=== PATIENT | male | born 1955 | race Caucasian/White ===

== ENCOUNTER 2016-11-28 03:13 | Inpatient (IN) | payer OTHER ==
[~2016-11-28] VITALS: Ht 172.7 cm; Wt 87.6 kg
[2016-11-28] VITALS (28 sets, daily range): BP systolic 94–125; BP diastolic 52–89; PULSE 57–75; RESP 17–28; Ht 172.7 cm; Wt 87.6 kg
--- NOTE | 2016-11-28 03:32 | ERA ---
ER Documentation Chief Complaint Date/Time DATE: 11/28/16 TIME: 03:31 Chief Complaint upper back sharp pain HPI The patient is a 61-year-old male, presenting to the ER because of acute upper back pain radiating down to bilateral arms and substernal chest about an hour prior to arrival. The pain is 10/10, denies similar symptoms previously, denies headache, neck pain, chest pain with exertion or vomiting or diaphoresis , denies abdominal pain, vomiting, dysuria, diarrhea, constipation. He does not smoke, drinks socially, denies illicit drug Past medical history/surgical history: None ROS All systems reviewed and are negative except as per history of present illness. Medications Home Meds Reported Medications Acetaminophen* (Acetaminophen*) 500 MG Extra Strength Tablet, 500 MG PO Q4H Y for PAIN AND OR ELEVATED TEMP, TAB 11/28/16 Allergies Allergies: Coded Allergies: No Known Allergy (Unverified , 11/28/16) Physical Exam Vitals Vital Signs Date Time Temp Pulse Resp B/P Pulse Ox O2 Delivery O2 Flow Rate FiO2 11/28/16 04:30 72 16 149/93 96 Mask 11/28/16 04:25 73 16 157/100 97 Mask 11/28/16 04:20 71 18 145/91 96 Mask 11/28/16 04:13 69 16 157/99 99 Room Air 11/28/16 04:10 100 2.0 28 11/28/16 03:57 Nasal Cannula 2 11/28/16 03:30 68 18 173/107 99 Room Air 11/28/16 03:18 97.4 69 18 174/110 99 Physical Exam Const: No acute distress. Head: Atraumatic. Eyes: Normal Conjunctiva. ENT: Normal External Ears, Nose and Mouth. Neck: Full range of motion. No meningismus. Resp: Clear to auscultation bilaterally. Cardio: Regular rate and rhythm. Abd: Soft, non distended, normal bowel sounds, non tender. Skin: No petechiae or rashes. Back: No midline or flank tenderness. Ext: No cyanosis, or edema. Neur: Awake and alert. No focal deficit Psych: Normal Mood and Affect. Result Diagram: 11/28/16 0400 11/28/16 0400 Results 24 hrs Laboratory Tests Test 11/28/16 04:00 White Blood Count 11.910^3/ul Red Blood Count 5.0210^6/ul Hemoglobin 15.6g/dl Hematocrit 46.0% Mean Corpuscular Volume 91.6fl Mean Corpuscular Hemoglobin 31.1pg Mean Corpuscular Hemoglobin Concent 33.9g/dl Red Cell Distribution Width 13.2% Platelet Count 70656^3/UL Mean Platelet Volume 12.4fl Neutrophils % 43.1% Lymphocytes % 45.7% Monocytes % 7.2% Eosinophils % 2.9% Basophils % 0.8% Nucleated Red Blood Cells % 0.0/100WBC Neutrophils # 5.110^3/ul Lymphocytes # 5.410^3/ul Monocytes # 0.910^3/ul Eosinophils # 0.310^3/ul Basophils # 0.110^3/ul Nucleated Red Blood Cells # 0.010^3/ul Prothrombin Time 12.7Sec Prothrombin Time Ratio 1.0 INR International Normalized Ratio 0.95 Activated Partial Thromboplast Time 27.6Sec Sodium Level 143mmol/L Potassium Level 3.6mmol/L Chloride Level 103mmol/L Carbon Dioxide Level 24mmol/L Anion Gap 20 Blood Urea Nitrogen 24mg/dl Creatinine 0.88mg/dl Glucose Level 120mg/dl Calcium Level 9.5mg/dl Troponin I Pending Current Medications Medications (Trade) Dose Ordered Sig/Hawk Route PRN Reason Start Time Stop Time Status Last Admin Dose Admin Ondansetron HCl (Zofran Inj) 4 mg STK-MED ONCE .ROUTE 11/28/16 03:40 11/28/16 03:41 DC Hydromorphone HCl (Dilaudid) 1 mg STK-MED ONCE .ROUTE 11/28/16 03:40 11/28/16 03:41 DC Hydromorphone HCl (Dilaudid) 1 mg ONCE STAT IV 11/28/16 03:38 11/28/16 03:41 DC 11/28/16 03:55 Ondansetron HCl (Zofran Inj) 4 mg ONCE STAT IV 11/28/16 03:38 11/28/16 03:41 DC 11/28/16 03:56 Aspirin 325 mg 325 mg ONCE ONCE PO 11/28/16 04:00 11/28/16 04:02 DC 11/28/16 04:10 Nitroglycerin/ Dextrose (Nitroglycerin 50 Mg/D5W (Pmx)) 250 ml @ 0 mls/hr TITRATE IV 11/28/16 04:00 11/28/16 04:12 Heparin Sodium (Porcine) (Heparin (1000 Units/ml)) 5,000 unit ONCE ONCE IV 11/28/16 04:30 11/28/16 04:31 DC 11/28/16 04:09 Procedures/MDM EK:58 AM read by emergency physician Rate/Rhythm: Normal Sinus Rhythm 69 beats/min QRS, ST, T-waves: No ST elevation, no T inversion, acute anterior ST elevation with reciprocal changes Impression: Acute anterior ND Consultation: I discussed the patient with the on-call maternity nurse Dr Randolph at 4:02 AM. He was made aware of the pending lab, the patient condition. He is coming to the hospital to do the emergent cardiac angiogram. I texted him the EKG MEDICAL MAKING DECISION: The patient is a 71-year-old male, presenting with acute anterior ND. He was treated with aspirin 160 mg p.o., nitroglycerin drip , heparin 5000 units IV The differential diagnoses considered include but are not limited to acute coronary syndrome, acute myocardial infarction, pericarditis, pulmonary embolism , aortic dissection, pneumonia, pleural effusion, pneumothorax, GERD, chest wall pain. Critical Care: Time: 35 minutes excluding all billable procedures. Treatments/Evaluations: Close monitoring and treatment of unstable vital signs, cardiorespiratory, and neurologic status, while maintaining tight balance of fluid, respiratory, and cardiac interventions. Departure Diagnosis: Primary Impression: Acute anterior wall ND Condition: Stable Comments I discussed the findings with the patient. I discussed the patient with his physician Dr. Parker at 4:45 AM who was made aware of the pending lab, the treatment, the patient condition. 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
[2016-11-28] MEDS ORDERED: HYDROmorphONE 1 MG/ML SYG IV STA (03:38)
[2016-11-28] MEDS ORDERED: ONDANSETRON 4 MG INJ IV STA (03:38)
[2016-11-28] MEDS ORDERED: HYDROmorphONE 1 MG/ML SYG ONE (03:40)
[2016-11-28] MEDS ORDERED: ONDANSETRON 4 MG INJ ONE (03:40)
[2016-11-28] MEDS ORDERED: ASPIRIN 325 MG TAB PO ONE (04:00)
[2016-11-28] MEDS ORDERED: NITROGLYCERIN 50 MG/D5W (PMX) 250 ML IV SCH (04:00)
[2016-11-28 04:24] LABS: ADD SCAN DIFF NO
[2016-11-28 04:28] LABS: ABNORMAL IP MESSAGE 1; BASOPHIL # 0.1 10^3/ul (0.0-0.1); BASOPHILS % 0.8 % (0.0-2.0); EOSINOPHILS # 0.3 10^3/ul (0.0-0.5); EOSINOPHILS % 2.9 % (0.0-7.0); HEMOGLOBIN 15.6 g/dl (14.0-18.0); LYMPHOCYTES # 5.4 10^3/ul (0.8-2.9); LYMPHOCYTES % 45.7 % (15.0-51.0); MEAN CORPUSCULAR HEMOGLOBIN 31.1 pg (29.0-33.0); MEAN CORPUSCULAR HGB CONC 33.9 g/dl (32.0-37.0); MEAN CORPUSCULAR VOLUME 91.6 fl (82.0-101.0); MEAN PLATELET VOLUME 12.4 fl (7.4-10.4); MONOCYTE # 0.9 10^3/ul (0.3-0.9); MONOCYTES % 7.2 % (0.0-11.0); NEUTROPHIL # 5.1 10^3/ul (1.6-7.5); NEUTROPHILS % 43.1 % (39.0-77.0); PLATELET COUNT 145 10^3/UL (140-415); RED BLOOD COUNT 5.02 10^6/ul (4.70-6.10); RED CELL DISTRIBUTION WIDTH 13.2 % (11.5-14.5); WHITE BLOOD COUNT 11.9 10^3/ul (4.8-10.8)
[2016-11-28] MEDS ORDERED: HEPARIN 1000 UNITS/ML 10 ML INJ IV ONE (04:30)
[2016-11-28 04:47] LABS: INR 0.95; PROTIME 12.7 Sec (12.2-14.2)
[2016-11-28 04:48] LABS: PARTIAL THROMBOPLASTIN TIME 27.6 Sec (25.0-35.0)
[2016-11-28] MEDS ORDERED: MIDAZOLAM 1 MG/ML 2 ML INJ ONE (04:49)
[2016-11-28] MEDS ORDERED: ACET-141 PO (04:49)
[2016-11-28] MEDS ORDERED: FENTAnyl 50 MCG/ML VIAL ONE (04:49)
[2016-11-28 04:51] LABS: CALCIUM 9.5 mg/dl (8.4-10.2); CREATININE 0.88 mg/dl (0.61-1.24); POTASSIUM 3.6 mmol/L (3.5-5.1)
[2016-11-28 05:02] LABS: TROPONIN-I 0.034 ng/ml (0.00-0.12)
[2016-11-28] MEDS ORDERED: niCARdipine 25 MG INJ ONE (05:11)
[2016-11-28] MEDS ORDERED: IOHEXOL 350MG/ML 50 ML BTL ONE (05:25)
[2016-11-28] MEDS ORDERED: LIDOCAINE 1% (MDV) 20 ML INJ ONE (05:26)
[2016-11-28] MEDS ORDERED: IODIXANOL LOCM 100 ML BTL ONE (05:26)
[2016-11-28] MEDS ORDERED: HEPARIN 1000 UNITS/ML 10 ML INJ ONE (05:26)
[2016-11-28] MEDS ORDERED: CLOPIDOGREL 300 MG TAB ONE (05:30)
[2016-11-28] MEDS ORDERED: SOD CHLORIDE 0.9% 1,000 ML IV SCH (05:42)
[2016-11-28] MEDS ORDERED: BIVALIRUDIN 250MG /NS 50 ML 50 ML IV SCH (05:42)
--- NOTE | 2016-11-28 05:49 | RADRPT ---
PROCEDURE: CHEST - 1 VIEW CLINICAL INDICATION: 64-year-old male with chest pain. TECHNIQUE: A single frontal AP upright portable view of the chest was performed. The images were reviewed on a PACS workstation. COMPARISON: None. FINDINGS: The cardiomediastinal silhouette is mildly enlarged. There is mild pulmonary vascular congestion. There is a shallow inspiration. There is mild bibasilar subsegmental atelectasis. There is no evid ence for focal consolidation. There is no evidence for pneumothorax. The osseous structures are inta ct. IMPRESSION: 1. Cardiomegaly. 2. Pulmonary vascular congestion. 3. Shallow inspiration. 4. Mild bibasilar subsegmental atelectasis. .Sam Beltre MD, Date Time Electronically viewed and signed by .Sam Beltre MD, on 11/28/2016 05:49 .M/
[2016-11-28] MEDS ORDERED: AL HYDROX/MG HYDROX/SIMETH 30 ML CUP PO PRN (06:00)
[2016-11-28] MEDS ORDERED: OXYCODONE/ACETAMINOPHEN (5/325) TAB PO PRN (06:00)
[2016-11-28] MEDS ORDERED: ONDANSETRON 4 MG INJ IV PRN (06:00)
[2016-11-28] MEDS ORDERED: ACETAMINOPHEN 325 MG TAB PO PRN (06:00)
[2016-11-28] MEDS ORDERED: BIVALIRUDIN 250MG /NS 50 ML 50 ML IVPB SCH (06:26)
[2016-11-28] MEDS ORDERED: HEPARIN 5,000 UNIT/0.5 ML VIAL ONE (07:00)
[2016-11-28] MEDS: morphine 2 MG INJ IV PRN ×2 (09:28→18:00)
[2016-11-28] MEDS: CLOPIDOGREL 75 MG TAB PO SCH (09:28)
[2016-11-28] MEDS: ASPIRIN (EC) 325 MG TAB PO SCH (09:28)
[2016-11-28] MEDS: METOPROLOL 25 MG TAB PO SCH ×2 (09:29→21:00)
[2016-11-28 10:58] LABS: CREATINE KINASE > 3200 IU/L (23-200)
--- NOTE | 2016-11-28 14:24 | RADRPT ---
Vent Rate: 70 bpm RR Interval: 0 msec [place] Interval: 160 msec QRS Duration: 88 msec QT Interval: 398 msec QTC Interval: 429 msec P-R-T [place]: 58 - 58 - 91 degrees Sinus rhythm with fusion complexes Anteroseptal infarct , possibly acute or subacute ACUTE [place] Abnormal ECG No previous tracing available for comparison Electronically Signed By: Francesco Holguin [id number]
[2016-11-28 21:28] LABS: CALCIUM 8.2 mg/dl (8.4-10.2); CREATININE 0.73 mg/dl (0.61-1.24); MAGNESIUM 1.8 mg/dl (1.7-2.5); POTASSIUM 3.8 mmol/L (3.5-5.1)
[2016-11-29] VITALS (26 sets, daily range): BP systolic 91–126; BP diastolic 54–75; PULSE 61–81; RESP 16–30
[2016-11-29 05:17] LABS: ADD SCAN DIFF NO
[2016-11-29 05:28] LABS: BASOPHILS % 0.3 % (0.0-2.0); EOSINOPHILS # 0.1 10^3/ul (0.0-0.5); EOSINOPHILS % 1.1 % (0.0-7.0); HEMATOCRIT 40.2 % (42.0-52.0); HEMOGLOBIN 13.5 g/dl (14.0-18.0); LYMPHOCYTES # 2.1 10^3/ul (0.8-2.9); LYMPHOCYTES % 21.7 % (15.0-51.0); MEAN CORPUSCULAR HEMOGLOBIN 31.3 pg (29.0-33.0); MEAN CORPUSCULAR HGB CONC 33.6 g/dl (32.0-37.0); MEAN CORPUSCULAR VOLUME 93.1 fl (82.0-101.0); MEAN PLATELET VOLUME 11.8 fl (7.4-10.4); MONOCYTE # 0.7 10^3/ul (0.3-0.9); MONOCYTES % 7.1 % (0.0-11.0); NEUTROPHIL # 6.8 10^3/ul (1.6-7.5); NEUTROPHILS % 69.6 % (39.0-77.0); PLATELET COUNT 158 10^3/UL (140-415); RED BLOOD COUNT 4.32 10^6/ul (4.70-6.10); RED CELL DISTRIBUTION WIDTH 13.3 % (11.5-14.5); WHITE BLOOD COUNT 9.7 10^3/ul (4.8-10.8)
[2016-11-29 05:53] LABS: CALCIUM 8.6 mg/dl (8.4-10.2); CREATININE 0.77 mg/dl (0.61-1.24); POTASSIUM 3.9 mmol/L (3.5-5.1)
[2016-11-29 06:12] LABS: CK-MB 99.4 ng/ml (0.0-2.4)
[2016-11-29 06:35] LABS: TROPONIN-I 84.6 ng/ml (0.00-0.12)
--- NOTE | 2016-11-29 08:26 | PN ---
Date/Time of Note Date/Time of Note DATE: 11/29/16 TIME: 08:18 Assessment/Plan VTE Prophylaxis VTE Prophylaxis Intervention: SCD's Lines/Catheters [facility] [place] line still needed: No Urinary Cath still in place: No Assessment/Plan Assessment/Plan 1. Acute PR: improving. He had 3 stents placed yesterday with Dr. Randolph. He is tolerating metoprolol, NTG, and plavix. He still has some residual chest pain on the NTG drip. No frictional rubs on exam, but he may be developing pericarditis. Will defer to Dr. Randolph if he needs NSAIDs vs increasing NTG drip, keeping in mind that is slightly hypotensive with SBP is in the mid-90's. 2. Hyperlipidemia: Continue statin. Check lipid panel (and LFTs) in the AM. 3. Alcohol use: Patient has been counseled to stop. 4. GI/DVT Prophylaxis: Protonix and SCDs. 5. Dispo: Better to remain in the ICU as the patient has ongoing chest pain. Subjective 24 Hr Interval Summary Free Text/Dictation Still complaining of mild chest pain. Otherwise no other complaints. Exam/Review of Systems Vital Signs Vitals Vital Signs Date Time Temp Pulse Resp B/P Pulse Ox O2 Delivery O2 Flow Rate FiO2 11/29/16 06:00 64 20 102/68 94 Nasal Cannula 5.0 11/29/16 04:00 98.1 11/28/16 04:10 28 Intake and Output 11/28/16 11/28/16 11/29/16 15:00 23:00 07:00 Intake Total 428 ml 1440 ml 131.5 ml Output Total 700 ml 600 ml 900 ml Balance -272 ml 840 ml -768.5 ml Exam Constitutional: alert, oriented Head: normocephalic Eyes: nl conjunctiva ENMT: nl external ears & nose Neck: supple Respiratory: clear to auscultation Cardiovascular: other (No friction rubs), regular rate and rhythm (No p) Gastrointestinal: soft Results Result Diagram: 11/29/16 0430 11/29/16 0430 Results 24 hrs Laboratory Tests Test 11/28/16 09:25 11/28/16 15:50 11/28/16 21:07 11/29/16 04:30 Creatine Kinase > 3200 H 5370 H 2215 #H Creatine Kinase Index 4.9 4.5 Creatinine Kinase MB (Mass) 366.00 H 261.00 H 99.40 H Troponin I 112.000 *H 156.000 *H 84.600 *H Sodium Level 132 L 138 Potassium Level 3.8 3.9 Chloride Level 104 101 Carbon Dioxide Level 25 26 Anion Gap 7 #L 15 # Blood Urea Nitrogen 14 # 14 Creatinine 0.73 0.77 Glucose Level 114 104 Calcium Level 8.2 L 8.6 Magnesium Level 1.8 2.0 White Blood Count 9.7 Red Blood Count 4.32 L Hemoglobin 13.5 L Hematocrit 40.2 L Mean Corpuscular Volume 93.1 Mean Corpuscular Hemoglobin 31.3 Mean Corpuscular Hemoglobin Concent 33.6 Red Cell Distribution Width 13.3 Platelet Count 158 Mean Platelet Volume 11.8 H Neutrophils % 69.6 Lymphocytes % 21.7 Monocytes % 7.1 Eosinophils % 1.1 Basophils % 0.3 Nucleated Red Blood Cells % 0.0 Neutrophils # 6.8 Lymphocytes # 2.1 Monocytes # 0.7 Eosinophils # 0.1 Basophils # 0.0 Nucleated Red Blood Cells # 0.0 Medications Medications Current Medications Nitroglycerin/ Dextrose (Nitroglycerin 50 Mg/D5W (Pmx)) 250 ml @ 0 mls/hr TITRATE IV Last administered on 11/28/16 04:12; Admin Dose 6 MLS/HR; Start 11/28 at 04:00 Aspirin (Ecotrin) 325 mg DAILY PO Last administered on 11/28/16 09:28; Admin Dose 325 MG; Start 11/28/16 at 09:00 Clopidogrel Bisulfate (plaVIX) 75 mg DAILY PO Last administered on 11/28/16 09: 28; Admin Dose 75 MG; Start 11/28/16 at 09:00 Acetaminophen (Tylenol Tab) 650 mg Q4H PRN PO NON-CARDIAC PAIN LEVEL 1-3; Start 11/28/16 at 06:00 Oxycodone/ Acetaminophen (Percocet (5/ 325)) 1 tab Q4H PRN PO REPORTED NON- CARDIAC PAIN 4-7 Last administered on 11/28/16 14:07; Admin Dose 1 TAB; Start at 06:00 Morphine Sulfate (morphine) 1 mg Q1H PRN IV PAIN NOT RELIEVED BY OTHERS Last administered on 11/28/16 18:00; Admin Dose 1 MG; Start 11/28/16 at 06:00 Al Hydrox/Mg Hydrox/Simethicone (Mag-Al Plus) 30 ml Q4H PRN PO GASTROINTESTINAL UPSET; Start 11/28/16 at 06:00 Ondansetron HCl (Zofran Inj) 4 mg Q4H PRN IV NAUSEA AND/OR VOMITING Last administered on 11/28/16 08:27; Admin Dose 4 MG; Start 11/28/16 at 06:00 Metoprolol Tartrate (Lopressor) 12.5 mg BID PO Last administered on 11/28/16 09 :29; Admin Dose 12.5 MG; Start 11/28/16 at 09:00 YOLANDA MUNSON MD Nov 29, 2016 08:26
[2016-11-29] MEDS: METOPROLOL 25 MG TAB PO SCH ×2 (09:00→21:31)
[2016-11-29] MEDS: PANTOPRAZOLE (EC) 40 MG TAB PO SCH (09:12)
[2016-11-29] MEDS: ASPIRIN (EC) 325 MG TAB PO SCH (09:13)
[2016-11-29] MEDS: CLOPIDOGREL 75 MG TAB PO SCH (09:13)
--- NOTE | 2016-11-29 09:32 | CONS ---
Date/Time of Note Date/Time of Note DATE: 11/29/16 TIME: 09:21 Assessment/Plan Assessment/Plan Chief Complaint/Hosp Course IMP: 1.STEMI-s/pptca/stent x 3 to LAD witrh YANET for 100% occlusion. Now downtrending cardiac enzymes. Has residual stenosis in LCX vessel/diag which I will consider PTCA/stent during this index admission 2.Chest pain-likely pain from residual inflammation after STEMI/? pericarditis. -decreasing enzymes 3.Hotn-borderline 4.Back pain 5.Dyslipidemia-Likely Recc: -Tele -serial ecg's -trend cardiac enzymes -ASA/plavix -start statin for pleiotropic properties and check fasting lipid panel and adjust as necessary -Low dose BB as tolerated -Check echo -Possible staged procedure tomorrow to intervene upon LCX -D/C nitro and follow sx Problems: Consultation Date/Type/Reason Admit Date/Time Nov 28, 2016 at 06:13 Initial Consult Date 11/28/2016 Type of Consultation: cardiology Reason for Consultation STEMI Referring Provider: YOLANDA MUNSON MD Exam/Review of Systems Vital Signs Vitals Vital Signs Date Time Temp Pulse Resp B/P Pulse Ox O2 Delivery O2 Flow Rate FiO2 11/29/16 06:00 64 20 102/68 94 Nasal Cannula 5.0 11/29/16 04:00 98.1 11/28/16 04:10 28 Intake and Output 11/28/16 11/28/16 11/29/16 15:00 23:00 07:00 Intake Total 428 ml 1440 ml 131.5 ml Output Total 700 ml 600 ml 900 ml Balance -272 ml 840 ml -768.5 ml Exam Review of Systems: CONSTITUTIONAL: No fevers, chills. PULMONARY: No sob CARDIOVASCULAR: mild chest pain improving GASTROINTESTINAL: No nausea/vomiting. GENITOURINARY: No hematuria/dysuria. MUSCULOSKELETAL: c/o back pain PSYCHIATRIC: The patient denies depression. NEUROLOGIC: No weakness Constitutional: alert Psych: no complaints Head: normocephalic ENMT: mucosa pink and moist Neck: jvd (8-9 cm water), supple Respiratory: diminished breath sounds (at bases/B) Cardiovascular: regular rate and rhythm Gastrointestinal: non-tender, soft Musculoskeletal: muscle tone (normal) Extremities: edema (none) Neurological: other (No focal deficits) Results Result Diagram: 11/29/16 0430 11/29/16 0430 Results 24 hrs Laboratory Tests Test 11/28/16 09:25 11/28/16 15:50 11/28/16 21:07 11/29/16 04:30 Creatine Kinase > 3200 H 5370 H 2215 #H Creatine Kinase Index 4.9 4.5 Creatinine Kinase MB (Mass) 366.00 H 261.00 H 99.40 H Troponin I 112.000 *H 156.000 *H 84.600 *H Sodium Level 132 L 138 Potassium Level 3.8 3.9 Chloride Level 104 101 Carbon Dioxide Level 25 26 Anion Gap 7 #L 15 # Blood Urea Nitrogen 14 # 14 Creatinine 0.73 0.77 Glucose Level 114 104 Calcium Level 8.2 L 8.6 Magnesium Level 1.8 2.0 White Blood Count 9.7 Red Blood Count 4.32 L Hemoglobin 13.5 L Hematocrit 40.2 L Mean Corpuscular Volume 93.1 Mean Corpuscular Hemoglobin 31.3 Mean Corpuscular Hemoglobin Concent 33.6 Red Cell Distribution Width 13.3 Platelet Count 158 Mean Platelet Volume 11.8 H Neutrophils % 69.6 Lymphocytes % 21.7 Monocytes % 7.1 Eosinophils % 1.1 Basophils % 0.3 Nucleated Red Blood Cells % 0.0 Neutrophils # 6.8 Lymphocytes # 2.1 Monocytes # 0.7 Eosinophils # 0.1 Basophils # 0.0 Nucleated Red Blood Cells # 0.0 Medications Medications Current Medications Nitroglycerin/ Dextrose (Nitroglycerin 50 Mg/D5W (Pmx)) 250 ml @ 0 mls/hr TITRATE IV Last administered on 11/28/16 04:12; Admin Dose 6 MLS/HR; Start 11/28 at 04:00 Aspirin (Ecotrin) 325 mg DAILY PO Last administered on 11/29/16 09:13; Admin Dose 325 MG; Start 11/28/16 at 09:00 Clopidogrel Bisulfate (plaVIX) 75 mg DAILY PO Last administered on 11/29/16 09: 13; Admin Dose 75 MG; Start 11/28/16 at 09:00 Acetaminophen (Tylenol Tab) 650 mg Q4H PRN PO NON-CARDIAC PAIN LEVEL 1-3; Start 11/28/16 at 06:00 Oxycodone/ Acetaminophen (Percocet (5/ 325)) 1 tab Q4H PRN PO REPORTED NON- CARDIAC PAIN 4-7 Last administered on 11/28/16 14:07; Admin Dose 1 TAB; Start at 06:00 Morphine Sulfate (morphine) 1 mg Q1H PRN IV PAIN NOT RELIEVED BY OTHERS Last administered on 11/28/16 18:00; Admin Dose 1 MG; Start 11/28/16 at 06:00 Al Hydrox/Mg Hydrox/Simethicone (Mag-Al Plus) 30 ml Q4H PRN PO GASTROINTESTINAL UPSET; Start 11/28/16 at 06:00 Ondansetron HCl (Zofran Inj) 4 mg Q4H PRN IV NAUSEA AND/OR VOMITING Last administered on 11/28/16 08:27; Admin Dose 4 MG; Start 11/28/16 at 06:00 Metoprolol Tartrate (Lopressor) 12.5 mg BID PO Last administered on 11/28/16 09 :29; Admin Dose 12.5 MG; Start 11/28/16 at 09:00 Pantoprazole (Protonix Tab) 40 mg DAILY@06 PO Last administered on 11/29/16 09: 12; Admin Dose 40 MG; Start 11/29/16 at 08:30 MIRIAM PEDROZA Nov 29, 2016 09:31
[2016-11-29] MEDS ORDERED: NITROGLYCERIN (SL) 0.4 MG TAB SL PRN (10:00)
[2016-11-29 10:26] LABS: ALBUMIN 4.1 g/dl (3.3-4.9); BILIRUBIN,INDIRECT 1.1 mg/dl (0-1.1); BILIRUBIN,TOTAL 1.1 mg/dl (0.2-1.3); TOTAL PROTEIN 6.8 g/dl (6.1-8.1)
--- NOTE | 2016-11-29 12:52 | RADRPT ---
Vent Rate: 70 bpm RR Interval: 0 msec [place] Interval: 150 msec QRS Duration: 88 msec QT Interval: 430 msec QTC Interval: 464 msec P-R-T [place]: 58 - 53 - 111 degrees Normal sinus rhythm Septal infarct , age undetermined T wave abnormality, consider anterolateral ischemia Abnormal ECG No previous tracing available for comparison Electronically Signed By: Francesco Holguin [id number]
[2016-11-29 15:54] LABS: CK-MB 34.3 ng/ml (0.0-2.4); TROPONIN-I 43.5 ng/ml (0.00-0.12)
--- NOTE | 2016-11-29 15:56 | RADRPT ---
Echocardiogram Report Patient Name: MATHEW HOLM Gender: Male Date: 1955 Study Date: 28-Nov-2016 Utility Driver: [place] Location: I Ref. Physician: MIRIAM RANDOLPH Quality: Adequate Procedures: Transthoracic echocardiogram with complete 2D, M-Mode, and doppler examination. Indications: STEMI. 2D/M Mode Doppler Measurement Value Normal Ranges Measurement Value Normal Ranges AoR Diam MM 3.3 cm AV Peak [place] 1.3 m/sec ACS MM 1.9 cm AV Peak PG 7.1 mmHg LVIDd 2D 4.4 3.5 - 5.6 cm LVOT Peak [place] 1.0 m/sec LVIDs 2D 2.9 2.1 - 4.1 cm LVOT Peak PG 4.3 mmHg LVPWd 2D 1.4 0.6 - 1.1 cm MV E Peak [place] 0.7 m/sec IVSd 2D 1.4 0.6 - 1.1 cm MV A Peak [place] 0.5 m/sec EDV 2D 89.4 cm3 MV E/A 1.3 ESV 2D 23.6 cm3 MV Decel Time 225 msec LA Dimen 2D 3.8 2.3 - 4.0 cm MV Decel [place] 3 MV E/A 1.3 TR Peak Chavez 2.5 m/sec TR Peak PG 25.2 mmHg PV Peak [place]avez 1.0 m/sec PV Peak PG 4.0 mmHg RVSP 28.2 mmHg Findings Left Ventricle: Normal left ventricular systolic function. Normal left ventricular cavity size. Mild concentric left ventricular hypertrophy. Ejection fraction is visually estimated at 3540 %. Tissue Doppler/Mitral Doppler indices are most probably consistent with pseudonormalization with mildly elevated left atrial pressure (Stage II diastolic dysfunction), difficult for patient to Valsalva. These segments of the LV are hypokinetic apex, apical septum, anteroseptum mid segment, anteroseptum base segment, inferior apex segment, apical anterior segment and mid anterior segment. Right Ventricle: Normal right ventricular size. Normal right ventricular systolic function. Left Atrium: The left atrium is normal in size. Right Atrium: The right atrium is normal in size. Atrial Septum: Normal atrial septum. Mitral Valve: Normal appearance of the mitral valve. Mild mitral annular calcification. Trace to mild mitral valve regurgitation. Aortic Valve: No significant aortic stenosis or insufficiency. Left coronary cusp appears mildly calcified. Trileaflet aortic valve. Tricuspid Valve: Normal appearance of the tricuspid valve. Estimated peak PA systolic pressure 28 mmHg. There is mild tricuspid regurgitation. Pulmonic Valve: Normal pulmonic valve appearance. There is trace pulmonic regurgitation. Pericardium: Normal pericardium with no significant pericardial effusion. Aorta: Normal aortic root. IVC: Normal size and normal respiratory collapse consistent with normal right atrial pressure. Pulmonary Artery: Normal pulmonary artery size. Conclusions 1.Normal left ventricular systolic function. Normal left ventricular cavity size. Mild concentric left ventricular hypertrophy. Ejection fraction is visually estimated at 35-40 %. Tissue Doppler/Mitral Doppler indices are most probably consistent with pseudonormalization with mildly elevated left atrial pressure (Stage II diastolic dysfunction), difficult for patient to Valsalva. 2.Trace to mild mitral valve regurgitation. 3.Estimated peak PA systolic pressure 28 mmHg. 4.There is mild tricuspid regurgitation. 5.There is trace pulmonic regurgitation. Electronically Signed By: Miriam Randolph 29-Nov-2016 15:55:30 -0700 Patient Name: MATHEW HOLM Study Date: 28-Nov-2016 [id number]
[2016-11-29] MEDS: ATORVASTATIN 80 MG TAB PO SCH (21:31)
[2016-11-30] VITALS (21 sets, daily range): BP systolic 99–137; BP diastolic 58–90; PULSE 62–86; RESP 9–29
[2016-11-30] MEDS: PANTOPRAZOLE (EC) 40 MG TAB PO SCH (06:00)
[2016-11-30 06:24] LABS: ADD SCAN DIFF NO
[2016-11-30 06:58] LABS: BASOPHILS % 0.5 % (0.0-2.0); EOSINOPHILS # 0.2 10^3/ul (0.0-0.5); EOSINOPHILS % 1.8 % (0.0-7.0); HEMOGLOBIN 14.5 g/dl (14.0-18.0); LYMPHOCYTES # 2.2 10^3/ul (0.8-2.9); LYMPHOCYTES % 25.5 % (15.0-51.0); MEAN CORPUSCULAR HEMOGLOBIN 32.2 pg (29.0-33.0); MEAN CORPUSCULAR HGB CONC 34.5 g/dl (32.0-37.0); MEAN CORPUSCULAR VOLUME 93.1 fl (82.0-101.0); MEAN PLATELET VOLUME 11.4 fl (7.4-10.4); MONOCYTE # 0.8 10^3/ul (0.3-0.9); MONOCYTES % 8.9 % (0.0-11.0); NEUTROPHIL # 5.5 10^3/ul (1.6-7.5); NEUTROPHILS % 63.1 % (39.0-77.0); PLATELET COUNT 142 10^3/UL (140-415); RED BLOOD COUNT 4.51 10^6/ul (4.70-6.10); RED CELL DISTRIBUTION WIDTH 13.1 % (11.5-14.5); WHITE BLOOD COUNT 8.7 10^3/ul (4.8-10.8)
[2016-11-30 06:59] LABS: CALCIUM 9.1 mg/dl (8.4-10.2); CHOL/HDL RATIO 4.4 RATIO; CREATININE 0.78 mg/dl (0.61-1.24); POTASSIUM 3.7 mmol/L (3.5-5.1)
[2016-11-30] MEDS ORDERED: DIPHENHYDRAMINE 50 MG CAP PO SCH (08:00)
[2016-11-30] MEDS ORDERED: DIAZEPAM 5 MG TAB PO SCH (08:00)
[2016-11-30] MEDS: METOPROLOL 25 MG TAB PO SCH (08:34)
[2016-11-30] MEDS: ASPIRIN (EC) 325 MG TAB PO SCH ×2 (08:34→09:55)
[2016-11-30] MEDS: CLOPIDOGREL 75 MG TAB PO SCH ×2 (08:35→09:55)
--- NOTE | 2016-11-30 09:56 | CONS ---
Date/Time of Note Date/Time of Note DATE: 11/30/16 TIME: 09:52 Assessment/Plan Assessment/Plan Chief Complaint/Hosp Course IMP: 1.STEMI-s/p ptca/stent x 3 to LAD witrh YANET for 100% occlusion. Now downtrending cardiac enzymes. Has residual stenosis in LCX vessel/diag. 2.Chest pain-likely pain from residual inflammation after STEMI/? pericarditis. -decreasing enzymes/improved 3.Hotn-borderline 4.Back pain 5.Dyslipidemia-LDL 118 HDL 40 6.Cardiomyopathy-LVEF 35-40 by echo directly after STEMI Recc: -Tele -serial ecg's -trend cardiac enzymes -ASA/plavix/statin -Continue Low dose BB as tolerated and will, ACEI afterload reduction -Staged procedure today to intervene upon LCX Problems: Consultation Date/Type/Reason Admit Date/Time Nov 28, 2016 at 06:13 Initial Consult Date 11/28/2016 Type of Consultation: cardiology Reason for Consultation STEMI Referring Provider: YOLANDA MUNSON MD Exam/Review of Systems Vital Signs Vitals Vital Signs Date Time Temp Pulse Resp B/P Pulse Ox O2 Delivery O2 Flow Rate FiO2 11/30/16 09:00 82 22 106/71 95 Nasal Cannula 2.0 11/30/16 07:00 98.3 11/28/16 04:10 28 Intake and Output 11/29/16 11/29/16 11/30/16 15:00 23:00 07:00 Intake Total 480 ml 400 ml 500 ml Output Total 750 ml 1150 ml 400 ml Balance -270 ml -750 ml 100 ml Exam Review of Systems: CONSTITUTIONAL: No fevers, chills. PULMONARY: No sob CARDIOVASCULAR: No chest pain/palpitations GASTROINTESTINAL: No nausea/vomiting. GENITOURINARY: No hematuria/dysuria. MUSCULOSKELETAL: No myagias/arthalgias. PSYCHIATRIC: The patient denies depression. NEUROLOGIC: No weakness Constitutional: alert, oriented Psych: no complaints Head: normocephalic ENMT: mucosa pink and moist Neck: jvd (9 cm water), supple Respiratory: clear to auscultation Cardiovascular: regular rate and rhythm Gastrointestinal: non-tender, soft Musculoskeletal: muscle tone (normal) Extremities: edema (none) Neurological: other (No focal deficits) Results Result Diagram: 7/10/17 0615 7/10/17 0615 Results 24 hrs Laboratory Tests Test 11/29/16 15:15 11/30/16 06:15 Creatine Kinase 1127 H Creatine Kinase Index 3.0 Creatinine Kinase MB (Mass) 34.30 H Troponin I 43.500 *H White Blood Count 8.7 Red Blood Count 4.51 L Hemoglobin 14.5 Hematocrit 42.0 Mean Corpuscular Volume 93.1 Mean Corpuscular Hemoglobin 32.2 Mean Corpuscular Hemoglobin Concent 34.5 Red Cell Distribution Width 13.1 Platelet Count 142 Mean Platelet Volume 11.4 H Neutrophils % 63.1 Lymphocytes % 25.5 Monocytes % 8.9 Eosinophils % 1.8 Basophils % 0.5 Nucleated Red Blood Cells % 0.0 Neutrophils # 5.5 Lymphocytes # 2.2 Monocytes # 0.8 Eosinophils # 0.2 Basophils # 0.0 Nucleated Red Blood Cells # 0.0 Sodium Level 141 Potassium Level 3.7 Chloride Level 102 Carbon Dioxide Level 27 Anion Gap 16 Blood Urea Nitrogen 19 Creatinine 0.78 Glucose Level 98 Calcium Level 9.1 Triglycerides Level 93 Cholesterol Level 177 LDL Cholesterol, Calculated 118 HDL Cholesterol 40 Cholesterol/HDL Ratio 4.4 Medications Medications Current Medications Nitroglycerin/ Dextrose (Nitroglycerin 50 Mg/D5W (Pmx)) 250 ml @ 0 mls/hr TITRATE IV Last administered on 11/28/16 04:12; Admin Dose 6 MLS/HR; Start 11/28 at 04:00 Aspirin (Ecotrin) 325 mg DAILY PO Last administered on 11/29/16 09:13; Admin Dose 325 MG; Start 11/28/16 at 09:00 Clopidogrel Bisulfate (plaVIX) 75 mg DAILY PO Last administered on 11/29/16 09: 13; Admin Dose 75 MG; Start 11/28/16 at 09:00 Acetaminophen (Tylenol Tab) 650 mg Q4H PRN PO NON-CARDIAC PAIN LEVEL 1-3; Start 11/28/16 at 06:00 Oxycodone/ Acetaminophen (Percocet (5/ 325)) 1 tab Q4H PRN PO REPORTED NON- CARDIAC PAIN 4-7 Last administered on 11/28/16 14:07; Admin Dose 1 TAB; Start at 06:00 Morphine Sulfate (morphine) 1 mg Q1H PRN IV PAIN NOT RELIEVED BY OTHERS Last administered on 11/28/16 18:00; Admin Dose 1 MG; Start 11/28/16 at 06:00 Al Hydrox/Mg Hydrox/Simethicone (Mag-Al Plus) 30 ml Q4H PRN PO GASTROINTESTINAL UPSET; Start 11/28/16 at 06:00 Ondansetron HCl (Zofran Inj) 4 mg Q4H PRN IV NAUSEA AND/OR VOMITING Last administered on 11/28/16 08:27; Admin Dose 4 MG; Start 11/28/16 at 06:00 Metoprolol Tartrate (Lopressor) 12.5 mg BID PO Last administered on 11/29/16 21 :31; Admin Dose 12.5 MG; Start 11/28/16 at 09:00 Pantoprazole (Protonix Tab) 40 mg DAILY@06 PO Last administered on 11/29/16 09: 12; Admin Dose 40 MG; Start 11/29/16 at 08:30 Atorvastatin Calcium (Lipitor) 80 mg HS PO Last administered on 11/29/16 21:31 ; Admin Dose 80 MG; Start 11/29/16 at 21:00 Nitroglycerin (Nitroglycerin (Sl Tab) 0.4 Mg) 1 tab Q5M PRN SL ANGINA; Start at 10:00 Diazepam (Valium) 5 mg OC PO ; Start 11/30/16 at 08:00; Stop 11/30/16 at 18:00 Diphenhydramine HCl (Benadryl) 50 mg OC PO ; Start 11/30/16 at 08:00; Stop 11/30 at 17:00 MIRIAM PEDROZA Nov 30, 2016 09:56
[2016-11-30] MEDS ORDERED: IODIXANOL LOCM 100 ML BTL ONE (10:19)
[2016-11-30] MEDS ORDERED: LIDOCAINE 1% (MDV) 20 ML INJ ONE (10:19)
[2016-11-30] MEDS ORDERED: VERAPAMIL 5 MG INJ ONE ×2 (10:20→11:48)
[2016-11-30] MEDS ORDERED: HEPARIN 1000 UNITS/ML 10 ML INJ ONE ×2 (10:20→11:49)
[2016-11-30] MEDS ORDERED: NITROGLYCERIN (IC) 100 MCG/ML INJ ONE (10:20)
[2016-11-30] MEDS ORDERED: LIDOCAINE 100 MG SYRINGE ONE (11:47)
[2016-11-30] MEDS ORDERED: FENTAnyl 50 MCG/ML VIAL ONE (12:20)
[2016-11-30] MEDS ORDERED: MIDAZOLAM 1 MG/ML 2 ML INJ ONE (12:20)
[2016-11-30] MEDS ORDERED: BIVALIRUDIN 250MG /NS 50 ML 50 ML IVPB ONE ×2 (12:32→13:35)
[2016-11-30] MEDS ORDERED: TICAGRELOR 90 MG TABLET ONE (12:46)
--- NOTE | 2016-11-30 13:46 | RADRPT ---
Vent Rate: 79 bpm RR Interval: 0 msec [place] Interval: 0 msec QRS Duration: 134 msec QT Interval: 444 msec QTC Interval: 509 msec P-R-T [place]: 0 - 96 - 15 degrees Undetermined rhythm Right bundle branch block Anteroseptal infarct , age undetermined Abnormal ECG Electronically Signed By: Mike Brown [id number]
[2016-11-30] MEDS ORDERED: SOD CHLORIDE 0.9% 1,000 ML IV SCH (13:51)
[2016-11-30] MEDS ORDERED: ACETAMINOPHEN 325 MG TAB PO PRN (14:00)
[2016-11-30] MEDS ORDERED: OXYCODONE/ACETAMINOPHEN (5/325) TAB PO PRN (14:00)
[2016-11-30] MEDS ORDERED: ONDANSETRON 4 MG INJ IV PRN (14:00)
[2016-11-30] MEDS ORDERED: AL HYDROX/MG HYDROX/SIMETH 30 ML CUP PO PRN (14:00)
[2016-11-30] MEDS ORDERED: morphine 2 MG INJ IV PRN (14:00)
--- NOTE | 2016-11-30 15:14 | PN ---
Date/Time of Note Date/Time of Note DATE: 11/30/16 TIME: 15:12 Assessment/Plan VTE Prophylaxis VTE Prophylaxis Intervention: other Lines/Catheters [facility] Saline Lock Urinary Cath still in place: No Assessment/Plan Assessment/Plan 1. stemi, s/p LAD stent and take back for LCx stent (b) cont secondary prevention Subjective 24 Hr Interval Summary Free Text/Dictation no complaints, no pain Exam/Review of Systems Vital Signs Vitals Vital Signs Date Time Temp Pulse Resp B/P Pulse Ox O2 Delivery O2 Flow Rate FiO2 11/30/16 11:43 86 11/30/16 11:00 14 99/58 95 Nasal Cannula 2.0 11/30/16 07:00 98.3 11/28/16 04:10 28 Intake and Output 11/29/16 11/29/16 11/30/16 15:00 23:00 07:00 Intake Total 480 ml 400 ml 500 ml Output Total 750 ml 1150 ml 400 ml Balance -270 ml -750 ml 100 ml Exam nad, soft nt, no pain at cath site Results Result Diagram: 11/30/1615 11/30/16 0615 Results 24 hrs Laboratory Tests Test 11/29/16 15:15 11/30/16 06:15 Creatine Kinase 1127 H Creatine Kinase Index 3.0 Creatinine Kinase MB (Mass) 34.30 H Troponin I 43.500 *H White Blood Count 8.7 Red Blood Count 4.51 L Hemoglobin 14.5 Hematocrit 42.0 Mean Corpuscular Volume 93.1 Mean Corpuscular Hemoglobin 32.2 Mean Corpuscular Hemoglobin Concent 34.5 Red Cell Distribution Width 13.1 Platelet Count 142 Mean Platelet Volume 11.4 H Neutrophils % 63.1 Lymphocytes % 25.5 Monocytes % 8.9 Eosinophils % 1.8 Basophils % 0.5 Nucleated Red Blood Cells % 0.0 Neutrophils # 5.5 Lymphocytes # 2.2 Monocytes # 0.8 Eosinophils # 0.2 Basophils # 0.0 Nucleated Red Blood Cells # 0.0 Sodium Level 141 Potassium Level 3.7 Chloride Level 102 Carbon Dioxide Level 27 Anion Gap 16 Blood Urea Nitrogen 19 Creatinine 0.78 Glucose Level 98 Calcium Level 9.1 Triglycerides Level 93 Cholesterol Level 177 LDL Cholesterol, Calculated 118 HDL Cholesterol 40 Cholesterol/HDL Ratio 4.4 Medications Medications Current Medications Nitroglycerin/ Dextrose (Nitroglycerin 50 Mg/D5W (Pmx)) 250 ml @ 0 mls/hr TITRATE IV Last administered on 11/28/16 04:12; Admin Dose 6 MLS/HR; Start 11/28 at 04:00 Aspirin (Ecotrin) 325 mg DAILY PO Last administered on 11/30/16 09:55; Admin Dose 325 MG; Start 11/28/16 at 09:00 Acetaminophen (Tylenol Tab) 650 mg Q4H PRN PO NON-CARDIAC PAIN LEVEL 1-3; Start 11/28/16 at 06:00 Oxycodone/ Acetaminophen (Percocet (5/ 325)) 1 tab Q4H PRN PO REPORTED NON- CARDIAC PAIN 4-7 Last administered on 11/28/16 14:07; Admin Dose 1 TAB; Start at 06:00 Morphine Sulfate (morphine) 1 mg Q1H PRN IV PAIN NOT RELIEVED BY OTHERS Last administered on 11/28/16 18:00; Admin Dose 1 MG; Start 11/28/16 at 06:00 Al Hydrox/Mg Hydrox/Simethicone (Mag-Al Plus) 30 ml Q4H PRN PO GASTROINTESTINAL UPSET; Start 11/28/16 at 06:00 Ondansetron HCl (Zofran Inj) 4 mg Q4H PRN IV NAUSEA AND/OR VOMITING Last administered on 11/28/16 08:27; Admin Dose 4 MG; Start 11/28/16 at 06:00 Pantoprazole (Protonix Tab) 40 mg DAILY@06 PO Last administered on 11/29/16 09: 12; Admin Dose 40 MG; Start 11/29/16 at 08:30 Atorvastatin Calcium (Lipitor) 80 mg HS PO Last administered on 11/29/16 21:31 ; Admin Dose 80 MG; Start 11/29/16 at 21:00 Nitroglycerin (Nitroglycerin (Sl Tab) 0.4 Mg) 1 tab Q5M PRN SL ANGINA; Start at 10:00 Diazepam (Valium) 5 mg OC PO Last administered on 11/30/16 10:25; Admin Dose 5 MG; Start 11/30/16 at 08:00; Stop 11/30/16 at 18:00 Diphenhydramine HCl (Benadryl) 50 mg OC PO Last administered on 11/30/16 10:25 ; Admin Dose 50 MG; Start 11/30/16 at 08:00; Stop 11/30/16 at 17:00 Carvedilol (Coreg) 3.125 mg BID PO ; Start 11/30/16 at 21:00 Lisinopril (Zestril) 2.5 mg DAILY PO ; Start 12/01/16 at 09:00 Miscellaneous Information (* Miscellaneous Pharmacy Order) Hold all Metformin ... ONCE XX ; Start 11/30/16 at 14:00; Stop 12/02/16 at 13:59 Aspirin (Halfprin) 81 mg DAILY PO ; Start 12/01/16 at 09:00 Ticagrelor (Brilinta) 90 mg BID PO ; Start 11/30/16 at 21:00 Acetaminophen (Tylenol Tab) 650 mg Q4H PRN PO NON-CARDIAC PAIN LEVEL 1-3; Start 11/30/16 at 14:00 Oxycodone/ Acetaminophen (Percocet (5/ 325)) 1 tab Q4H PRN PO REPORTED NON- CARDIAC PAIN 4-7; Start 11/30/16 at 14:00 Morphine Sulfate (morphine) 1 mg Q1H PRN IV PAIN NOT RELIEVED BY OTHERS; Start 11/30/16 at 14:00 Al Hydrox/Mg Hydrox/Simethicone (Mag-Al Plus) 30 ml Q4H PRN PO GASTROINTESTINAL UPSET; Start 11/30/16 at 14:00 Ondansetron HCl 4 mg 4 mg Q4H PRN IV NAUSEA AND/OR VOMITING; Start 11/30/16 at 14:00 Sodium Chloride (NS) 1,000 ml @ 75 mls/hr [id number] IV Last administered on 11/30 14:12; Admin Dose 75 MLS/HR; Start 11/30/16 at 13:51; Stop 12/01/16 at 03: 10 ANGELA GÓMEZ MD Nov 30, 2016 15:13
[2016-11-30] MEDS: ATORVASTATIN 80 MG TAB PO SCH (20:23)
[2016-11-30] MEDS: TICAGRELOR 90 MG TABLET PO SCH (20:28)
[2016-12-01] VITALS (21 sets, daily range): BP systolic 94–126; BP diastolic 55–83; PULSE 65–79; RESP 0–30
[2016-12-01 05:36] LABS: ADD SCAN DIFF NO
[2016-12-01 05:49] LABS: BASOPHIL # 0.1 10^3/ul (0.0-0.1); BASOPHILS % 0.5 % (0.0-2.0); EOSINOPHILS # 0.2 10^3/ul (0.0-0.5); EOSINOPHILS % 2.4 % (0.0-7.0); HEMOGLOBIN 14.6 g/dl (14.0-18.0); LYMPHOCYTES # 1.9 10^3/ul (0.8-2.9); MEAN CORPUSCULAR HEMOGLOBIN 30.7 pg (29.0-33.0); MEAN CORPUSCULAR HGB CONC 33.2 g/dl (32.0-37.0); MEAN CORPUSCULAR VOLUME 92.6 fl (82.0-101.0); MEAN PLATELET VOLUME 11.4 fl (7.4-10.4); MONOCYTE # 0.9 10^3/ul (0.3-0.9); MONOCYTES % 9.9 % (0.0-11.0); NEUTROPHIL # 6.1 10^3/ul (1.6-7.5); NEUTROPHILS % 65.9 % (39.0-77.0); PLATELET COUNT 160 10^3/UL (140-415); RED BLOOD COUNT 4.75 10^6/ul (4.70-6.10); RED CELL DISTRIBUTION WIDTH 13.3 % (11.5-14.5); WHITE BLOOD COUNT 9.2 10^3/ul (4.8-10.8)
[2016-12-01 06:10] LABS: CALCIUM 8.9 mg/dl (8.4-10.2); CREATININE 0.84 mg/dl (0.61-1.24); POTASSIUM 3.8 mmol/L (3.5-5.1)
[2016-12-01 06:18] LABS: CK-MB 7.24 ng/ml (0.0-2.4); TROPONIN-I 22.6 ng/ml (0.00-0.12)
[2016-12-01] MEDS: PANTOPRAZOLE (EC) 40 MG TAB PO SCH (06:29)
[2016-12-01] MEDS: ASPIRIN (EC) 81 MG TAB PO SCH (08:14)
[2016-12-01] MEDS: LISINOPRIL 5 MG TAB PO SCH (08:14)
[2016-12-01] MEDS: TICAGRELOR 90 MG TABLET PO SCH ×2 (08:15→20:56)
[2016-12-01] MEDS: ASPIRIN (EC) 325 MG TAB PO SCH (08:18)
--- NOTE | 2016-12-01 10:41 | CONS ---
Date/Time of Note Date/Time of Note DATE: 12/01/16 TIME: 10:38 Assessment/Plan Assessment/Plan Additional Assessment/Plan 1.STEMI-s/p ptca/stent x 3 to LAD witrh YANET for 100% occlusion. Now downtrending cardiac enzymes. Has residual stenosis in LCX vessel/diag - better now, able to ambulate - ok to tele 2.Chest pain-likely pain from residual inflammation after STEMI/? pericarditis. -decreasing enzymes/improved - no active CP 3.Hotn-borderline - BP better 4.Back pain 5.Dyslipidemia-LDL 118 HDL 40 6.Cardiomyopathy-LVEF 35-40 by echo directly after STEMI - gentle diuresis as needed Consultation Date/Type/Reason Admit Date/Time Nov 28, 2016 at 06:13 Initial Consult Date Type of Consultation: cardiology Referring Provider: YOLANDA MUNSON MD 24 HR Interval Summary Free Text/Dictation NO acute events - BP in good range - able to ambulate - encourage rehab now. ROS: No fever, no chills, no nausea, no vomiting, no diarrhea/constipation No recent weight changes No chest pain, no PND, no orthopnea No dizziness, blurred vision No thirst, no heat or cold intolerance Exam/Review of Systems Vital Signs Vitals Vital Signs Date Time Temp Pulse Resp B/P Pulse Ox O2 Delivery O2 Flow Rate FiO2 12/01/16 10:00 71 28 118/80 95 Nasal Cannula 2.0 12/01/16 08:00 98.2 11/28/16 04:10 28 Intake and Output 11/30/16 11/30/16 12/01/16 15:00 23:00 07:00 Intake Total 75 ml 1200 ml 450 ml Output Total 350 ml 1350 ml 600 ml Balance -275 ml -150 ml -150 ml Exam General: WN/WD/NAD, AOx 3 HEENT: Unicetric/atraumatic/EOMI (follow commands) NECK: JVD elevated, no thyromegaly Lymph: no lymphadenopathy HEART: regular with no S3, II/ systolic murmur at apex LUNGS: Coarse sounds ABD: soft, NT, ND, +BS : Intact Neuro: non focal SKIN: chronic changes EXT: trace edema Results Result Diagram: 12/01/1651912/01/16 0520 Results 24 hrs Laboratory Tests Test 12/01/16 05:20 White Blood Count 9.2 Red Blood Count 4.75 Hemoglobin 14.6 Hematocrit 44.0 Mean Corpuscular Volume 92.6 Mean Corpuscular Hemoglobin 30.7 Mean Corpuscular Hemoglobin Concent 33.2 Red Cell Distribution Width 13.3 Platelet Count 160 Mean Platelet Volume 11.4 H Neutrophils % 65.9 Lymphocytes % 21.0 Monocytes % 9.9 Eosinophils % 2.4 Basophils % 0.5 Nucleated Red Blood Cells % 0.0 Neutrophils # 6.1 Lymphocytes # 1.9 Monocytes # 0.9 Eosinophils # 0.2 Basophils # 0.1 Nucleated Red Blood Cells # 0.0 Sodium Level 137 Potassium Level 3.8 Chloride Level 105 Carbon Dioxide Level 24 Anion Gap 12 Blood Urea Nitrogen 15 Creatinine 0.84 Glucose Level 104 Calcium Level 8.9 Creatine Kinase 348 #H Creatine Kinase Index 2.1 Creatinine Kinase MB (Mass) 7.24 H Troponin I 22.600 *H Medications Medications Current Medications Nitroglycerin/ Dextrose (Nitroglycerin 50 Mg/D5W (Pmx)) 250 ml @ 0 mls/hr TITRATE IV Last administered on 11/28/16 04:12; Admin Dose 6 MLS/HR; Start 11/28 at 04:00 Acetaminophen (Tylenol Tab) 650 mg Q4H PRN PO NON-CARDIAC PAIN LEVEL 1-3; Start 11/28/16 at 06:00 Oxycodone/ Acetaminophen (Percocet (5/ 325)) 1 tab Q4H PRN PO REPORTED NON- CARDIAC PAIN 4-7 Last administered on 11/28/16 14:07; Admin Dose 1 TAB; Start at 06:00 Morphine Sulfate (morphine) 1 mg Q1H PRN IV PAIN NOT RELIEVED BY OTHERS Last administered on 11/28/16 18:00; Admin Dose 1 MG; Start 11/28/16 at 06:00 Al Hydrox/Mg Hydrox/Simethicone (Mag-Al Plus) 30 ml Q4H PRN PO GASTROINTESTINAL UPSET; Start 11/28/16 at 06:00 Ondansetron HCl (Zofran Inj) 4 mg Q4H PRN IV NAUSEA AND/OR VOMITING Last administered on 11/28/16 08:27; Admin Dose 4 MG; Start 11/28/16 at 06:00 Pantoprazole (Protonix Tab) 40 mg DAILY@06 PO Last administered on 12/01/16 06 :29; Admin Dose 40 MG; Start 11/29/16 at 08:30 Atorvastatin Calcium (Lipitor) 80 mg HS PO Last administered on 11/30/16 20:23 ; Admin Dose 80 MG; Start 11/29/16 at 21:00 Nitroglycerin (Nitroglycerin (Sl Tab) 0.4 Mg) 1 tab Q5M PRN SL ANGINA; Start at 10:00 Carvedilol (Coreg) 3.125 mg BID PO Last administered on 11/30/16 20:24; Admin Dose 3.125 MG; Start 11/30/16 at 21:00 Lisinopril (Zestril) 2.5 mg DAILY PO Last administered on 12/01/16 08:14; Admin Dose 2.5 MG; Start 12/01/16 at 09:00 Miscellaneous Information (* Miscellaneous Pharmacy Order) Hold all Metformin ... ONCE XX ; Start 11/30/16 at 14:00; Stop 12/02/16 at 13:59 Aspirin (Halfprin) 81 mg DAILY PO Last administered on 12/01/16 08:14; Admin Dose 81 MG; Start 12/01/16 at 09:00 Ticagrelor (Brilinta) 90 mg BID PO Last administered on 12/01/16 08:15; Admin Dose 90 MG; Start 11/30/16 at 21:00 Acetaminophen (Tylenol Tab) 650 mg Q4H PRN PO NON-CARDIAC PAIN LEVEL 1-3; Start 11/30/16 at 14:00 Oxycodone/ Acetaminophen (Percocet (5/ 325)) 1 tab Q4H PRN PO REPORTED NON- CARDIAC PAIN 4-7; Start 11/30/16 at 14:00 Morphine Sulfate (morphine) 1 mg Q1H PRN IV PAIN NOT RELIEVED BY OTHERS; Start 11/30/16 at 14:00 Al Hydrox/Mg Hydrox/Simethicone (Mag-Al Plus) 30 ml Q4H PRN PO GASTROINTESTINAL UPSET; Start 11/30/16 at 14:00 Ondansetron HCl (Zofran Inj) 4 mg Q4H PRN IV NAUSEA AND/OR VOMITING; Start 03/09 at 14:00 ANAID JOHNSON MD Dec 01, 2016 10:40
--- NOTE | 2016-12-01 15:15 | PN ---
Date/Time of Note Date/Time of Note DATE: 12/01/16 TIME: 15:13 Assessment/Plan VTE Prophylaxis VTE Prophylaxis Intervention: other Lines/Catheters IV Catheter Type (from Nrs): Saline Lock Urinary Cath still in place: No Assessment/Plan Assessment/Plan 1,. cards: s/p stemi and stent x3 LAD, s/p stent to lcx (b0 cont secondary prevention (C) increase activity Subjective 24 Hr Interval Summary Free Text/Dictation no comp;laionts, able to walk, improving pain Exam/Review of Systems Vital Signs Vitals Vital Signs Date Time Temp Pulse Resp B/P Pulse Ox O2 Delivery O2 Flow Rate FiO2 12/01/16 14:00 76 30 121/83 97 Room Air 12/01/16 12:00 98.0 12/01/16 10:00 2.0 11/28/16 04:10 28 Intake and Output 11/30/16 11/30/16 12/01/16 15:00 23:00 07:00 Intake Total 75 ml 1200 ml 450 ml Output Total 350 ml 1350 ml 600 ml Balance -275 ml -150 ml -150 ml Exam nad soft nt, no pain or hematoma at cath site Results Result Diagram: 12/01/16 0520 12/01/16 0520 Results 24 hrs Laboratory Tests Test 12/01/16 05:20 White Blood Count 9.2 Red Blood Count 4.75 Hemoglobin 14.6 Hematocrit 44.0 Mean Corpuscular Volume 92.6 Mean Corpuscular Hemoglobin 30.7 Mean Corpuscular Hemoglobin Concent 33.2 Red Cell Distribution Width 13.3 Platelet Count 160 Mean Platelet Volume 11.4 H Neutrophils % 65.9 Lymphocytes % 21.0 Monocytes % 9.9 Eosinophils % 2.4 Basophils % 0.5 Nucleated Red Blood Cells % 0.0 Neutrophils # 6.1 Lymphocytes # 1.9 Monocytes # 0.9 Eosinophils # 0.2 Basophils # 0.1 Nucleated Red Blood Cells # 0.0 Sodium Level 137 Potassium Level 3.8 Chloride Level 105 Carbon Dioxide Level 24 Anion Gap 12 Blood Urea Nitrogen 15 Creatinine 0.84 Glucose Level 104 Calcium Level 8.9 Creatine Kinase 348 #H Creatine Kinase Index 2.1 Creatinine Kinase MB (Mass) 7.24 H Troponin I 22.600 *H Medications Medications Current Medications Nitroglycerin/ Dextrose (Nitroglycerin 50 Mg/D5W (Pmx)) 250 ml @ 0 mls/hr TITRATE IV Last administered on 11/28/16 04:12; Admin Dose 6 MLS/HR; Start 11/28 at 04:00 Acetaminophen (Tylenol Tab) 650 mg Q4H PRN PO NON-CARDIAC PAIN LEVEL 1-3; Start 11/28/16 at 06:00 Oxycodone/ Acetaminophen (Percocet (5/ 325)) 1 tab Q4H PRN PO REPORTED NON- CARDIAC PAIN 4-7 Last administered on 11/28/16 14:07; Admin Dose 1 TAB; Start at 06:00 Morphine Sulfate (morphine) 1 mg Q1H PRN IV PAIN NOT RELIEVED BY OTHERS Last administered on 11/28/16 18:00; Admin Dose 1 MG; Start 11/28/16 at 06:00 Al Hydrox/Mg Hydrox/Simethicone (Mag-Al Plus) 30 ml Q4H PRN PO GASTROINTESTINAL UPSET; Start 11/28/16 at 06:00 Ondansetron HCl (Zofran Inj) 4 mg Q4H PRN IV NAUSEA AND/OR VOMITING Last administered on 11/28/16 08:27; Admin Dose 4 MG; Start 11/28/16 at 06:00 Pantoprazole (Protonix Tab) 40 mg DAILY@06 PO Last administered on 12/01/16 06 :29; Admin Dose 40 MG; Start 11/29/16 at 08:30 Atorvastatin Calcium (Lipitor) 80 mg HS PO Last administered on 11/30/16 20:23 ; Admin Dose 80 MG; Start 11/29/16 at 21:00 Nitroglycerin (Nitroglycerin (Sl Tab) 0.4 Mg) 1 tab Q5M PRN SL ANGINA; Start at 10:00 Carvedilol (Coreg) 3.125 mg BID PO Last administered on 11/30/16 20:24; Admin Dose 3.125 MG; Start 11/30/16 at 21:00 Lisinopril (Zestril) 2.5 mg DAILY PO Last administered on 12/01/16 08:14; Admin Dose 2.5 MG; Start 12/01/16 at 09:00 Miscellaneous Information (* Miscellaneous Pharmacy Order) Hold all Metformin ... ONCE XX ; Start 11/30/16 at 14:00; Stop 12/02/16 at 13:59 Aspirin (Halfprin) 81 mg DAILY PO Last administered on 12/01/16 08:14; Admin Dose 81 MG; Start 12/01/16 at 09:00 Ticagrelor (Brilinta) 90 mg BID PO Last administered on 12/01/16 08:15; Admin Dose 90 MG; Start 11/30/16 at 21:00 Acetaminophen (Tylenol Tab) 650 mg Q4H PRN PO NON-CARDIAC PAIN LEVEL 1-3; Start 11/30/16 at 14:00 Oxycodone/ Acetaminophen (Percocet (5/ 325)) 1 tab Q4H PRN PO REPORTED NON- CARDIAC PAIN 4-7; Start 11/30/16 at 14:00 Morphine Sulfate (morphine) 1 mg Q1H PRN IV PAIN NOT RELIEVED BY OTHERS; Start 11/30/16 at 14:00 Al Hydrox/Mg Hydrox/Simethicone (Mag-Al Plus) 30 ml Q4H PRN PO GASTROINTESTINAL UPSET; Start 11/30/16 at 14:00 Ondansetron HCl (Zofran Inj) 4 mg Q4H PRN IV NAUSEA AND/OR VOMITING; Start 03/09 at 14:00 ANGELA GÓMEZ MD Dec 01, 2016 15:15
--- NOTE | 2016-12-01 17:18 | RADRPT ---
Vent Rate: 68 bpm RR Interval: 0 msec WV Interval: 148 msec QRS Duration: 90 msec QT Interval: 424 msec QTC Interval: 450 msec P-R-T Wiley: 58 - 45 - 91 degrees Normal sinus rhythm Septal infarct , age undetermined T wave abnormality, consider anterolateral ischemia Abnormal ECG Electronically Signed By: Mike Brown [id number]
[2016-12-01] MEDS: ATORVASTATIN 80 MG TAB PO SCH (20:56)
[2016-12-02] VITALS (12 sets, daily range): BP systolic 102–119; BP diastolic 56–74; PULSE 66–80; RESP 18–20
[2016-12-02] MEDS: PANTOPRAZOLE (EC) 40 MG TAB PO SCH (05:55)
[2016-12-02] MEDS: ASPIRIN (EC) 81 MG TAB PO SCH (08:47)
[2016-12-02] MEDS: LISINOPRIL 5 MG TAB PO SCH (08:48)
[2016-12-02] MEDS: TICAGRELOR 90 MG TABLET PO SCH ×2 (08:49→21:02)
[2016-12-02 12:14] LABS: CK-MB 3.32 ng/ml (0.0-2.4); TROPONIN-I 11.1 ng/ml (0.00-0.12)
--- NOTE | 2016-12-02 12:45 | PN ---
Date/Time of Note Date/Time of Note DATE: 12/02/16 TIME: 12:14 Assessment/Plan VTE Prophylaxis VTE Prophylaxis Intervention: SCD's Lines/Catheters IV Catheter Type (from Nrs): Saline Lock Urinary Cath still in place: No Assessment/Plan Assessment/Plan 61-year-old male: 1. S/p STEMI and s/p stents to LAD x3 and stent to lcx Continue current medications, follow-up with cardiology regarding disposition and discharge planning. Prophylaxis: Tolerating p.o., ambulation Disposition: Follow-up cardiology recommendation regarding discharge planning, hopefully patient can go home today with PCP and cardiology follow-up Subjective 24 Hr Interval Summary Free Text/Dictation Patient denies chest pain, nausea or vomiting. He has ambulated multiple times with no complaints of shortness of breath or chest pain Repeat troponin is pending today, discharge planning pending cardiology follow- up No arrhythmias on telemetry Exam/Review of Systems Vital Signs Vitals Vital Signs Date Time Temp Pulse Resp B/P Pulse Ox O2 Delivery O2 Flow Rate FiO2 12/02/16 11:21 97.9 75 20 102/56 98 12/01/16 17:00 Room Air 12/01/16 10:00 2.0 Intake and Output 12/01/16 12/01/16 12/02/16 15:00 23:00 07:00 Intake Total 330 ml 0 ml 400 ml Output Total 650 ml 1 ml Balance -320 ml -1 ml 400 ml Exam Constitutional: alert, oriented, well developed Respiratory: clear to auscultation, normal air movement Cardiovascular: nl pulses, regular rate and rhythm Gastrointestinal: non-tender, soft Musculoskeletal: nl extremities to inspection Extremities: normal pulses, other (No edema clubbing or cyanosis) 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, nl mental status, nl speech, nl strength Results Result Diagram: 12/01/1651912/01/16 0520 Results 24 hrs Laboratory Tests Test 12/02/16 10:54 Creatine Kinase 214 H Creatine Kinase Index Pending Creatinine Kinase MB (Mass) Pending Troponin I Pending Medications Medications Current Medications Acetaminophen (Tylenol Tab) 650 mg Q4H PRN PO NON-CARDIAC PAIN LEVEL 1-3; Start 11/28/16 at 06:00 Oxycodone/ Acetaminophen (Percocet (5/ 325)) 1 tab Q4H PRN PO REPORTED NON- CARDIAC PAIN 4-7 Last administered on 11/28/16 14:07; Admin Dose 1 TAB; Start at 06:00 Morphine Sulfate (morphine) 1 mg Q1H PRN IV PAIN NOT RELIEVED BY OTHERS Last administered on 11/28/16 18:00; Admin Dose 1 MG; Start 11/28/16 at 06:00 Ondansetron HCl (Zofran Inj) 4 mg Q4H PRN IV NAUSEA AND/OR VOMITING Last administered on 11/28/16 08:27; Admin Dose 4 MG; Start 11/28/16 at 06:00 Pantoprazole (Protonix Tab) 40 mg DAILY@06 PO Last administered on 12/02/16 05 :55; Admin Dose 40 MG; Start 11/29/16 at 08:30 Atorvastatin Calcium (Lipitor) 80 mg HS PO Last administered on 12/01/16 20:56 ; Admin Dose 80 MG; Start 11/29/16 at 21:00 Nitroglycerin (Nitroglycerin (Sl Tab) 0.4 Mg) 1 tab Q5M PRN SL ANGINA; Start at 10:00 Carvedilol (Coreg) 3.125 mg BID PO Last administered on 11/30/16 20:24; Admin Dose 3.125 MG; Start 11/30/16 at 21:00 Lisinopril (Zestril) 2.5 mg DAILY PO Last administered on 12/02/16 08:48; Admin Dose 2.5 MG; Start 12/01/16 at 09:00 Miscellaneous Information (* Miscellaneous Pharmacy Order) Hold all Metformin ... ONCE XX ; Start 11/30/16 at 14:00; Stop 12/02/16 at 13:59 Aspirin (Halfprin) 81 mg DAILY PO Last administered on 12/02/16 08:47; Admin Dose 81 MG; Start 12/01/16 at 09:00 Ticagrelor (Brilinta) 90 mg BID PO Last administered on 12/02/16 08:49; Admin Dose 90 MG; Start 11/30/16 at 21:00 Acetaminophen (Tylenol Tab) 650 mg Q4H PRN PO NON-CARDIAC PAIN LEVEL 1-3; Start 11/30/16 at 14:00 Oxycodone/ Acetaminophen (Percocet (5/ 325)) 1 tab Q4H PRN PO REPORTED NON- CARDIAC PAIN 4-7; Start 11/30/16 at 14:00 Morphine Sulfate (morphine) 1 mg Q1H PRN IV PAIN NOT RELIEVED BY OTHERS; Start 11/30/16 at 14:00 Al Hydrox/Mg Hydrox/Simethicone (Mag-Al Plus) 30 ml Q4H PRN PO GASTROINTESTINAL UPSET; Start 11/30/16 at 14:00 Ondansetron HCl (Zofran Inj) 4 mg Q4H PRN IV NAUSEA AND/OR VOMITING; Start 03/09 at 14:00 CAIT NUÑEZ F Dec 02, 2016 12: at 10:00 Carvedilol (Coreg) 3.125 mg BID PO Last administered on 11/30/16 20:24; Admin Dose 3.125 MG; Start 11/30/16 at 21:00 Lisinopril (Zestril) 2.5 mg DAILY PO Last administered on 12/02/16 08:48; Admin Dose 2.5 MG; Start 12/01/16 at 09:00 Miscellaneous Information (* Miscellaneous Pharmacy Order) Hold all Metformin ... ONCE XX ; Start 11/30/16 at 14:00; Stop 12/02/16 at 13:59 Aspirin (Halfprin) 81 mg DAILY PO Last administered on 12/02/16 08:47; Admin Dose 81 MG; Start 12/01/16 at 09:00 Ticagrelor (Brilinta) 90 mg BID PO Last administered on 12/02/16 08:49; Admin Dose 90 MG; Start 11/30/16 at 21:00 Acetaminophen (Tylenol Tab) 650 mg Q4H PRN PO NON-CARDIAC PAIN LEVEL 1-3; Start 11/30/16 at 14:00 Oxycodone/ Acetaminophen (Percocet (5/ 325)) 1 tab Q4H PRN PO REPORTED NON- CARDIAC PAIN 4-7; Start 11/30/16 at 14:00 Morphine Sulfate (morphine) 1 mg Q1H PRN IV PAIN NOT RELIEVED BY OTHERS; Start 11/30/16 at 14:00 Al Hydrox/Mg Hydrox/Simethicone (Mag-Al Plus) 30 ml Q4H PRN PO GASTROINTESTINAL UPSET; Start 11/30/16 at 14:00 Ondansetron HCl (Zofran Inj) 4 mg Q4H PRN IV NAUSEA AND/OR VOMITING; Start 03/09 at 14:00 CAIT NUÑEZ Dec 02, 2016 12:29
--- NOTE | 2016-12-02 15:17 | PDOCDIS ---
Discharge Instructions CONDITION Patient Condition: Stable HOME CARE INSTRUCTIONS: Special Diet: LOW CHOL/LOW FAT ACTIVITY: Activity Restrictions: Slowly Increase Activity Do not operate Power Tool Avoid Heavy Housework FOLLOW UP/APPOINTMENTS Follow-up Plan Follow up with PCP in 1 to 2 weeks Follow up with Cardiology in 2 to 4 weeks SCHOOL/WORK RELEASE May return to School/Work on: Dec 16, 2016 CAIT NUÑEZ Dec 02, 2016 15:17
[2016-12-02] MEDS ORDERED: TICA90TA PO (15:20)
[2016-12-02] MEDS ORDERED: ATOR80TA75 PO (15:20)
[2016-12-02] MEDS ORDERED: LISI-313 PO (15:20)
[2016-12-02] MEDS ORDERED: ASPI-664 PO (15:20)
[2016-12-02] MEDS ORDERED: CARV3.1260 PO (15:20)
--- NOTE | 2016-12-02 16:24 | CONS ---
Date/Time of Note Date/Time of Note DATE: 12/02/16 TIME: 16:15 Assessment/Plan Assessment/Plan Chief Complaint/Hosp Course IMP: 1.STEMI-s/p ptca/stent x 3 to LAD with YANET for 100% occlusion. Now downtrending cardiac enzymes. Now s/p PTCA/stent x 1 diag/x 1 to LCX POD#2 2.Chest pain-likely pain from residual inflammation after STEMI/? pericarditis. -decreasing enzymes/improved 3.Hotn-borderline 4.Back pain 5.Dyslipidemia-LDL 118 HDL 40 6.Cardiomyopathy-LVEF 35-40 by echo directly after STEMI Recc: -Tele -ASA/Brilinta -Continue Low dose BB as tolerated and ACEI afterload reduction -Continue low dose lasix and follow volume status closely -outpatient f/u 2-3 weeks -At [facility] time working on authorization for Brilinta for stent patency/anti- platelet agents as patient is a non-responder to plavix and thus must have brilinta with asa as antiplatelet regimen Problems: Consultation Date/Type/Reason Admit Date/Time Nov 28, 2016 at 06:13 Initial Consult Date 11/28/2016 Type of Consultation: cardiology Reason for Consultation STEMI Referring Provider: YOLANDA MUNSON MD Exam/Review of Systems Vital Signs Vitals Vital Signs Date Time Temp Pulse Resp B/P Pulse Ox O2 Delivery O2 Flow Rate FiO2 12/02/16 15:18 98.0 75 20 104/59 95 12/01/16 17:00 Room Air 12/01/16 10:00 2.0 Intake and Output 12/01/16 12/01/16 12/02/16 15:00 23:00 07:00 Intake Total 330 ml 0 ml 400 ml Output Total 650 ml 1 ml Balance -320 ml -1 ml 400 ml Exam Review of Systems: CONSTITUTIONAL: No fevers, chills. PULMONARY: No sob CARDIOVASCULAR: No chest pain/palpitations GASTROINTESTINAL: No nausea/vomiting. GENITOURINARY: No hematuria/dysuria. MUSCULOSKELETAL: No myagias/arthalgias. PSYCHIATRIC: The patient denies depression. NEUROLOGIC: No weakness Constitutional: alert, oriented Psych: no complaints Head: normocephalic Neck: jvd (8 cm water), supple Respiratory: clear to auscultation Cardiovascular: regular rate and rhythm Gastrointestinal: non-tender, soft Musculoskeletal: muscle tone (normal) Extremities: edema (none) Neurological: other (No focal deficits) Results Result Diagram: 12/01/1651912/01/16 0520 Results 24 hrs Laboratory Tests Test 12/02/16 10:54 Creatine Kinase 214 H Creatine Kinase Index 1.6 Creatinine Kinase MB (Mass) 3.32 H Troponin I 11.100 *H Medications Medications Current Medications Acetaminophen (Tylenol Tab) 650 mg Q4H PRN PO NON-CARDIAC PAIN LEVEL 1-3; Start 11/28/16 at 06:00 Oxycodone/ Acetaminophen (Percocet (5/ 325)) 1 tab Q4H PRN PO REPORTED NON- CARDIAC PAIN 4-7 Last administered on 11/28/16 14:07; Admin Dose 1 TAB; Start at 06:00 Morphine Sulfate (morphine) 1 mg Q1H PRN IV PAIN NOT RELIEVED BY OTHERS Last administered on 11/28/16 18:00; Admin Dose 1 MG; Start 11/28/16 at 06:00 Ondansetron HCl (Zofran Inj) 4 mg Q4H PRN IV NAUSEA AND/OR VOMITING Last administered on 11/28/16 08:27; Admin Dose 4 MG; Start 11/28/16 at 06:00 Pantoprazole (Protonix Tab) 40 mg DAILY@06 PO Last administered on 12/02/16 05 :55; Admin Dose 40 MG; Start 11/29/16 at 08:30 Atorvastatin Calcium (Lipitor) 80 mg HS PO Last administered on 12/01/16 20:56 ; Admin Dose 80 MG; Start 11/29/16 at 21:00 Nitroglycerin (Nitroglycerin (Sl Tab) 0.4 Mg) 1 tab Q5M PRN SL ANGINA; Start at 10:00 Carvedilol (Coreg) 3.125 mg BID PO Last administered on 11/30/16 20:24; Admin Dose 3.125 MG; Start 11/30/16 at 21:00 Lisinopril (Zestril) 2.5 mg DAILY PO Last administered on 12/02/16 08:48; Admin Dose 2.5 MG; Start 12/01/16 at 09:00 Aspirin (Halfprin) 81 mg DAILY PO Last administered on 12/02/16 08:47; Admin Dose 81 MG; Start 12/01/16 at 09:00 Ticagrelor (Brilinta) 90 mg BID PO Last administered on 12/02/16 08:49; Admin Dose 90 MG; Start 11/30/16 at 21:00 Acetaminophen (Tylenol Tab) 650 mg Q4H PRN PO NON-CARDIAC PAIN LEVEL 1-3; Start 11/30/16 at 14:00 Oxycodone/ Acetaminophen (Percocet (5/ 325)) 1 tab Q4H PRN PO REPORTED NON- CARDIAC PAIN 4-7; Start 11/30/16 at 14:00 Morphine Sulfate (morphine) 1 mg Q1H PRN IV PAIN NOT RELIEVED BY OTHERS; Start 11/30/16 at 14:00 Al Hydrox/Mg Hydrox/Simethicone (Mag-Al Plus) 30 ml Q4H PRN PO GASTROINTESTINAL UPSET; Start 11/30/16 at 14:00 Ondansetron HCl (Zofran Inj) 4 mg Q4H PRN IV NAUSEA AND/OR VOMITING; Start 03/09 at 14:00 MIRIAM PEDROZA Dec 02, 2016 16:24
[2016-12-02] MEDS: ATORVASTATIN 80 MG TAB PO SCH (21:01)
[2016-12-03] VITALS (12 sets, daily range): BP systolic 101–117; BP diastolic 59–71; PULSE 68–80; RESP 17–20
[2016-12-03] MEDS: PANTOPRAZOLE (EC) 40 MG TAB PO SCH (05:44)
--- NOTE | 2016-12-03 09:04 | PN ---
Date/Time of Note Date/Time of Note DATE: 12/03/16 TIME: 08:59 Assessment/Plan VTE Prophylaxis VTE Prophylaxis Intervention: SCD's Lines/Catheters IV Catheter Type (from Nrs): Saline Lock Urinary Cath still in place: No Assessment/Plan Assessment/Plan 61-year-old male: 1. S/p STEMI and s/p stents to LAD x3 and stent to lcx, patient is a plavix nonresponder per Cardiology therefore needs Brinlinta Continue current medications, working on prior auth for Brilinta so thst patient can be discharged Follow-up with cardiology outpatient in 2 to 4 weeks Follow with PCP in 1 to 2 weeks Prophylaxis: Tolerating p.o., ambulation Disposition: Follow-up PA for Brilinta, hopefully patient can go home today with PCP and cardiology follow-up. Subjective 24 Hr Interval Summary Free Text/Dictation No Acute events, patient doing well and awaiting approval of PA for Brilinta to be discharged Exam/Review of Systems Vital Signs Vitals Vital Signs Date Time Temp Pulse Resp B/P Pulse Ox O2 Delivery O2 Flow Rate FiO2 12/03/16 08:36 70 12/03/16 07:52 98.1 18 109/60 93 12/01/16 17:00 Room Air 12/01/16 10:00 2.0 Intake and Output 12/02/16 12/02/16 12/03/16 15:00 23:00 07:00 Intake Total 1900 ml 600 ml Balance 1900 ml 600 ml Exam Constitutional: alert, oriented, well developed Respiratory: clear to auscultation, normal air movement Cardiovascular: nl pulses, regular rate and rhythm Gastrointestinal: non-tender, soft Musculoskeletal: nl extremities to inspection Extremities: normal pulses, other (no edema, clubbing or cyanosis ) Neurological: MEDICAL RECORD SPECIALIST II-XII intact, nl mental status, nl speech, nl strength Results Result Diagram: 12/01/1651912/01/16 0520 Results 24 hrs Laboratory Tests Test 12/02/16 10:54 Creatine Kinase 214 H Creatine Kinase Index 1.6 Creatinine Kinase MB (Mass) 3.32 H Troponin I 11.100 *H Medications Medications Current Medications Acetaminophen (Tylenol Tab) 650 mg Q4H PRN PO NON-CARDIAC PAIN LEVEL 1-3; Start 11/28/16 at 06:00 Oxycodone/ Acetaminophen (Percocet (5/ 325)) 1 tab Q4H PRN PO REPORTED NON- CARDIAC PAIN 4-7 Last administered on 11/28/16 14:07; Admin Dose 1 TAB; Start at 06:00 Morphine Sulfate (morphine) 1 mg Q1H PRN IV PAIN NOT RELIEVED BY OTHERS Last administered on 11/28/16 18:00; Admin Dose 1 MG; Start 11/28/16 at 06:00 Ondansetron HCl (Zofran Inj) 4 mg Q4H PRN IV NAUSEA AND/OR VOMITING Last administered on 11/28/16 08:27; Admin Dose 4 MG; Start 11/28/16 at 06:00 Pantoprazole (Protonix Tab) 40 mg DAILY@06 PO Last administered on 12/03/16 05 :44; Admin Dose 40 MG; Start 11/29/16 at 08:30 Atorvastatin Calcium (Lipitor) 80 mg HS PO Last administered on 12/02/16 21:01 ; Admin Dose 80 MG; Start 11/29/16 at 21:00 Nitroglycerin (Nitroglycerin (Sl Tab) 0.4 Mg) 1 tab Q5M PRN SL ANGINA; Start at 10:00 Carvedilol (Coreg) 3.125 mg BID PO Last administered on 12/02/16 21:01; Admin Dose 3.125 MG; Start 11/30/16 at 21:00 Lisinopril (Zestril) 2.5 mg DAILY PO Last administered on 12/02/16 08:48; Admin Dose 2.5 MG; Start 12/01/16 at 09:00 Aspirin (Halfprin) 81 mg DAILY PO Last administered on 12/02/16 08:47; Admin Dose 81 MG; Start 12/01/16 at 09:00 Ticagrelor (Brilinta) 90 mg BID PO Last administered on 12/02/16 21:02; Admin Dose 90 MG; Start 11/30/16 at 21:00 Acetaminophen (Tylenol Tab) 650 mg Q4H PRN PO NON-CARDIAC PAIN LEVEL 1-3; Start 11/30/16 at 14:00 Oxycodone/ Acetaminophen (Percocet (5/ 325)) 1 tab Q4H PRN PO REPORTED NON- CARDIAC PAIN 4-7; Start 11/30/16 at 14:00 Morphine Sulfate (morphine) 1 mg Q1H PRN IV PAIN NOT RELIEVED BY OTHERS; Start 11/30/16 at 14:00 Al Hydrox/Mg Hydrox/Simethicone (Mag-Al Plus) 30 ml Q4H PRN PO GASTROINTESTINAL UPSET; Start 11/30/16 at 14:00 Ondansetron HCl (Zofran Inj) 4 mg Q4H PRN IV NAUSEA AND/OR VOMITING; Start 03/09 at 14:00 Furosemide (Lasix) 20 mg DAILY PO ; Start 12/03/16 at 09:00 CAIT NUÑEZ Dec 03, 2016 09:03
[2016-12-03] MEDS: FUROSEMIDE 20 MG TAB PO SCH (09:50)
[2016-12-03] MEDS: LISINOPRIL 5 MG TAB PO SCH (09:50)
[2016-12-03] MEDS: ASPIRIN (EC) 81 MG TAB PO SCH (09:50)
[2016-12-03] MEDS: TICAGRELOR 90 MG TABLET PO SCH ×2 (09:51→22:04)
--- NOTE | 2016-12-03 19:05 | CONS ---
Date/Time of Note Date/Time of Note DATE: 12/03/16 TIME: 19:03 Assessment/Plan Assessment/Plan Chief Complaint/Hosp Course IMP: 1.STEMI-s/p ptca/stent x 3 to LAD with YANET for 100% occlusion. Now downtrending cardiac enzymes. Now s/p PTCA/stent x 1 diag/x 1 to LCX POD#2 2.Chest pain-likely pain from residual inflammation after STEMI/? pericarditis. -decreasing enzymes/improved 3.Hotn-borderline 4.Back pain 5.Dyslipidemia-LDL 118 HDL 40 6.Cardiomyopathy-LVEF 35-40 by echo directly after STEMI Recc: -Tele -ASA/Brilinta -Continue Low dose BB as tolerated and ACEI afterload reduction -Continue low dose lasix and follow volume status closely -outpatient f/u 2-3 weeks -At this time working on authorization for Brilinta for stent patency/anti- platelet agents as patient is a non-responder to plavix and thus must have brilinta 90 mg po bid with asa 81 mg daily as antiplatelet regimen Problems: Consultation Date/Type/Reason Admit Date/Time Nov 28, 2016 at 06:13 Initial Consult Date 11/28/2016 Type of Consultation: cardiology Reason for Consultation Stemi Referring Provider: YOLANDA MUNSON MD Exam/Review of Systems Vital Signs Vitals Vital Signs Date Time Temp Pulse Resp B/P Pulse Ox O2 Delivery O2 Flow Rate FiO2 12/03/16 16:41 68 12/03/16 16:10 97.9 18 115/71 94 12/01/16 17:00 Room Air 12/01/16 10:00 2.0 Intake and Output 12/02/16 12/02/16 12/03/16 15:00 23:00 07:00 Intake Total 1900 ml 600 ml Balance 1900 ml 600 ml Exam Review of Systems: CONSTITUTIONAL: No fevers, chills. PULMONARY: No sob CARDIOVASCULAR: No chest pain/palpitations GASTROINTESTINAL: No nausea/vomiting. GENITOURINARY: No hematuria/dysuria. MUSCULOSKELETAL: No myagias/arthalgias. PSYCHIATRIC: The patient denies depression. NEUROLOGIC: No weakness Constitutional: alert, oriented Psych: no complaints Head: normocephalic ENMT: mucosa pink and moist Neck: jvd (8-9 cm water), supple Respiratory: clear to auscultation Cardiovascular: regular rate and rhythm Gastrointestinal: non-tender, soft Musculoskeletal: muscle tone (normal) Extremities: edema (none) Neurological: other (No focal deficits) Results Result Diagram: 12/01/1651912/01/16519 Medications Medications Current Medications Acetaminophen (Tylenol Tab) 650 mg Q4H PRN PO NON-CARDIAC PAIN LEVEL 1-3; Start 11/28/16 at 06:00 Oxycodone/ Acetaminophen (Percocet (5/ 325)) 1 tab Q4H PRN PO REPORTED NON- CARDIAC PAIN 4-7 Last administered on 11/28/16 14:07; Admin Dose 1 TAB; Start at 06:00 Morphine Sulfate (morphine) 1 mg Q1H PRN IV PAIN NOT RELIEVED BY OTHERS Last administered on 11/28/16 18:00; Admin Dose 1 MG; Start 11/28/16 at 06:00 Ondansetron HCl (Zofran Inj) 4 mg Q4H PRN IV NAUSEA AND/OR VOMITING Last administered on 11/28/16 08:27; Admin Dose 4 MG; Start 11/28/16 at 06:00 Pantoprazole (Protonix Tab) 40 mg DAILY@06 PO Last administered on 12/03/16 05 :44; Admin Dose 40 MG; Start 11/29/16 at 08:30 Atorvastatin Calcium (Lipitor) 80 mg HS PO Last administered on 12/02/16 21:01 ; Admin Dose 80 MG; Start 11/29/16 at 21:00 Nitroglycerin (Nitroglycerin (Sl Tab) 0.4 Mg) 1 tab Q5M PRN SL ANGINA; Start at 10:00 Carvedilol (Coreg) 3.125 mg BID PO Last administered on 12/02/16 21:01; Admin Dose 3.125 MG; Start 11/30/16 at 21:00 Lisinopril (Zestril) 2.5 mg DAILY PO Last administered on 12/03/16 09:50; Admin Dose 2.5 MG; Start 12/01/16 at 09:00 Aspirin (Halfprin) 81 mg DAILY PO Last administered on 12/03/16 09:50; Admin Dose 81 MG; Start 12/01/16 at 09:00 Ticagrelor (Brilinta) 90 mg BID PO Last administered on 12/03/16 09:51; Admin Dose 90 MG; Start 11/30/16 at 21:00 Acetaminophen (Tylenol Tab) 650 mg Q4H PRN PO NON-CARDIAC PAIN LEVEL 1-3; Start 11/30/16 at 14:00 Oxycodone/ Acetaminophen (Percocet (5/ 325)) 1 tab Q4H PRN PO REPORTED NON- CARDIAC PAIN 4-7; Start 11/30/16 at 14:00 Morphine Sulfate (morphine) 1 mg Q1H PRN IV PAIN NOT RELIEVED BY OTHERS; Start 11/30/16 at 14:00 Al Hydrox/Mg Hydrox/Simethicone (Mag-Al Plus) 30 ml Q4H PRN PO GASTROINTESTINAL UPSET; Start 11/30/16 at 14:00 Ondansetron HCl (Zofran Inj) 4 mg Q4H PRN IV NAUSEA AND/OR VOMITING; Start 03/09 at 14:00 Furosemide (Lasix) 20 mg DAILY PO Last administered on 12/03/16 09:50; Admin Dose 20 MG; Start 12/03/16 at 09:00 MIRIAM PEDROZA Dec 03, 2016 19:05
[2016-12-03] MEDS ORDERED: FUROSEMIDE 20 MG INJ IV ONE (19:30)
--- NOTE | 2016-12-03 21:59 | RADRPT ---
PROCEDURE: XR Chest. CLINICAL INDICATION: Shortness of breath. TECHNIQUE: Single frontal view. COMPARISON: 11/28/2016. FINDINGS: The lungs are clear. The heart is mildly enlarged. There is no pleural effusion. There is no pneumothorax. IMPRESSION: 1. Mild cardiomegaly. 2. Clear lungs. RPTAT: QQ .Pepito Maria MD, MD Date Time Electronically viewed and signed by .Pepito Maria MD, MD on 12/03/2016 21:58 .R/
[2016-12-03] MEDS: ATORVASTATIN 80 MG TAB PO SCH (22:01)
[2016-12-04] VITALS (8 sets, daily range): BP systolic 111–136; BP diastolic 65–87; PULSE 62–74; RESP 15–18
--- NOTE | 2016-12-04 05:30 | HP ---
DATE OF ADMISSION: 11/28/2016 CHIEF COMPLAINT: "I have sharp pain in my upper back." HISTORY OF PRESENT ILLNESS: The patient is a pleasant 61-year- old male with no significant past medical history who was awoken up from sleep with acute upper back pain radiating down his bilateral arms and substernal chest. This occurred approximately 1 hour prior to arrival. He states the pain is 10/10 and he denies any similar symptoms in the past. He also denies headache, neck pain, chest pain, exertion or vomiting or diaphoresis. He also denies abdominal pain or constipation. The patient states does not smoke nor does he have diabetes, hypertension or hyperlipidemia. 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 PAST SURGICAL HISTORY: None according to the patient. PAST MEDICAL HISTORY: None. MEDICATIONS: Tylenol 500 mg once daily for pain. ALLERGIES: NO KNOWN DRUG ALLERGIES. 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 He says he drinks occasionally and does not smoke. He lives with his family. FAMILY HISTORY: The patient's mother's uncles had a history of premature coronary artery disease with heart attacks in the age range of 60-70. PHYSICAL EXAMINATION: VITAL SIGNS: Temperature is 97.5, blood pressure 116/70, pulse rate of 61-68, respiratory rate of 19, oxygen saturation 100% on room air. HEENT: Normocephalic, atraumatic. Extraocular movements are intact. Pupils are equal, round, reactive to light and accommodation. His oropharynx was clear. No JVD was noted. No thyromegaly was noted. CARDIAC: The patient had a regular rate and rhythm without appreciable murmurs, rubs or gallops. LUNGS: Clear to auscultation bilaterally. No rales, rhonchi or crackles. ABDOMEN: Soft, nontender, nondistended. Normoactive bowel sounds x all four quadrants. EXTREMITIES: No cyanosis, clubbing or edema noted. He had 2+ dorsalis pedis pulses and 2+ radial pulses bilaterally. DATA: Labs/tests: The patient had an EKG which revealed ST elevation in the anterior leads of V1 through V3 with reciprocal changes in the opposing leads. This was diagnostic of acute myocardial infarction. His white count was 11.9, hemoglobin 15.6, hematocrit of 46, platelet count of 145,000. Sodium was 143, potassium 3.6. Chloride 103. BUN 20, creatinine 0.88, glucose 120, calcium 9.5. Initial troponin 0.034, the following troponin 4 hours later was 112 and 4 hours after that it was 156. His PT was 12.7 with an INR of 0.95 and a PTT of 27.6. The patient also had an x-ray which revealed cardiomegaly and pulmonary vascular congestion with mild bibasilar segmental atelectasis. IMPRESSION: The patient is a 61-year-old gentleman who presents with upper back pain radiating down his arms. He presented to the emergency department early and was diagnosed with and ST elevation myocardial infarction. The patient was emergently taken to the catheterization lab by Dr. Randolph. The patient had multi-vessel disease; however, was able to have 3 stents placed. He was subsequently transitioned to the intensive care unit. Hemodynamically he is stable and I was able to update the family about the results of the angiogram and stenting. In discussion with Dr. Randolph, there was another culprit lesion that may be amenable to stenting. To avoid a heavy dye load and contrast nephropathy, this procedure will be staged and will likely take place in approximately 48 hours. We will also trend the patient's troponins and give intravenous fluids to minimize contrast nephropathy. A fasting lipid panel will be checked and the patient will be started on aspirin, statin, Plavix as well as a host of other medications to optimize his modifiable cardiac risk factors. Dictated By: Pankaj Beverly MD /[email or web address] /Document#: [id number]
[2016-12-04] MEDS: PANTOPRAZOLE (EC) 40 MG TAB PO SCH (06:22)
[2016-12-04 08:36] LABS: CALCIUM 9.3 mg/dl (8.4-10.2); CREATININE 0.94 mg/dl (0.61-1.24); MAGNESIUM 2.1 mg/dl (1.7-2.5); POTASSIUM 3.7 mmol/L (3.5-5.1)
[2016-12-04] MEDS: TICAGRELOR 90 MG TABLET PO SCH (09:08)
[2016-12-04] MEDS: LISINOPRIL 5 MG TAB PO SCH (09:08)
[2016-12-04] MEDS: FUROSEMIDE 20 MG TAB PO SCH (09:09)
[2016-12-04] MEDS: ASPIRIN (EC) 81 MG TAB PO SCH (09:09)
--- NOTE | 2016-12-04 09:44 | CONS ---
DATE OF ADMISSION: 11/28/2016 DATE OF CONSULTATION: 11/28/2016 REASON FOR CONSULTATION: Escalation [place]. REQUESTING PHYSICIAN: Mike Stratton MD HISTORY OF PRESENT ILLNESS: Mr. Batista is a 61-year-old male without significant past medical history, who initially presented with acute onset acute upper back pain radiating to his arms bilaterally and substernal chest pain for about an hour prior to arrival. Upon arrival to the emergency department, temperature 97.4, blood pressure 149/93, pulse 72, respiratory rate 16, sat 93 percent. Patient's labs were notably for a white count of 11.9, hemoglobin 15.6, platelet count 145. Sodium 143, potassium 3.6, creatinine 0.8, BUN 24. INR of 0.9. Troponin negative. Patient's EKG revealed normal sinus rhythm, rate of 69, normal axis with anterior ST elevation. There was reciprocal inferolateral depression. Patient was treated with aspirin 160 mg, heparin 5000 units and is being brought emergently to the cardiac earth science laboratory technician in order to undergone left heart cardiac catheterization with probable PTCI and stents placed for treatment of myocardial infarction. PAST MEDICAL HISTORY: As above in HPI. MEDICATION: Upon admit, none. ALLERGIES: NO KNOWN DRUG ALLERGIES. SOCIAL HISTORY: No tobacco. Social EtOH. No illicit drug use. FAMILY HISTORY: No history of sudden cardiac deaths or early CAD. REVIEW OF SYSTEMS: As above in HPI. CONSTITUTIONAL: No fever or chills. RESPIRATORY: No current shortness of breath. CARDIOVASCULAR: Chest pain. GASTROINTESTINAL: No vomiting. GENITOURINARY: No hematuria. MUSCULOSKELETAL: Degenerative joint disease. PSYCHIATRIC: No documented psych history. NEUROLOGIC: No documented history of CVA. PHYSICAL EXAMINATION: VITAL SIGNS: Temperature of 97.4, blood pressure 149/93, pulse 72, respiratory rate is 16, satting 96 percent. GENERAL: The patient is alert, awake, complaining of substernal chest pain. NECK: JVP approximately 9-10 cm of water. CHEST: Fair movement throughout. CARDIAC: Regular rate and rhythm. Normal S1, S2. 1/6 systolic murmur. Nondisplaced PMI. ABDOMEN: Bowel sounds positive. Soft. EXTREMITIES: No edema. 1+ pulses bilaterally posterior tibialis. LABORATORY: As above in HPI. No further labs reviewed at this time. ECG as above in HPI. No further electrocardiograms reviewed at this time. IMAGING STUDIES: No imaging studies reviewed at this time. IMPRESSION: 1. myocardial infarction anterior. 2. Chest pain secondary to #1. 3. Hypertension. RECOMMENDATIONS: At this time, patient will be brought emergently to the cardiac earth science laboratory technician to undergo left heart catheterization and probable PTCI and stent placement with further recommendation after completion of the study. Dictated By: Azeb Mccartney /[email or web address]/prema /Document#: [id number] CC: Mike Stratton MD;*[facility]*
--- NOTE | 2016-12-04 11:20 | PN ---
Date/Time of Note Date/Time of Note DATE: 12/04/16 TIME: 11:18 Assessment/Plan VTE Prophylaxis VTE Prophylaxis Intervention: ambulation Lines/Catheters [facility] Saline Lock Urinary Cath still in place: No Assessment/Plan Assessment/Plan 61-year-old male: 1. S/p STEMI and s/p stents to LAD x3 and stent to lcx, patient is a plavix nonresponder per Cardiology therefore needs Brinlinta Continue current medications, finally prior auth for Brilinta approved this AM, so patient discharged home. Follow-up with cardiology outpatient in 2 to 4 weeks Follow with PCP in 1 to 2 weeks Prophylaxis: Tolerating p.o., ambulation Disposition: D/c home today with PCP and cardiology follow-up. Subjective 24 Hr Interval Summary Free Text/Dictation Patient doing well, no arrhythmia noted, he actually has been discharged since yesterday but we are awaiting Brilinta approval which finally came through this morning. Patient can go home this morning and follow-up with cardiology in 2-3 weeks Exam/Review of Systems Vital Signs Vitals Vital Signs Date Time Temp Pulse Resp B/P Pulse Ox O2 Delivery O2 Flow Rate FiO2 12/04/16 08:17 62 12/04/16 07:59 97.9 18 111/65 94 12/01/16 17:00 Room Air 12/01/16 10:00 2.0 Intake and Output 12/03/16 12/03/16 12/04/16 15:00 23:00 07:00 Intake Total 500 ml 650 ml Balance 500 ml 650 ml Exam Constitutional: alert, oriented, well developed Respiratory: clear to auscultation, normal air movement Cardiovascular: nl pulses, regular rate and rhythm Gastrointestinal: non-tender, soft Musculoskeletal: nl extremities to inspection, nl gait and stance Extremities: normal pulses, other (No edema, clubbing or cyanosis) Neurological: CRTS II-XII intact, nl mental status, nl speech, nl strength Results Result Diagram: 12/01/16 0520 12/04/16 0719 Results 24 hrs Laboratory Tests Test 12/04/16 07:19 Sodium Level 134 L Potassium Level 3.7 Chloride Level 105 Carbon Dioxide Level 23 Anion Gap 10 Blood Urea Nitrogen 26 H Creatinine 0.94 Glucose Level 105 Calcium Level 9.3 Magnesium Level 2.1 Medications Medications Current Medications Acetaminophen (Tylenol Tab) 650 mg Q4H PRN PO NON-CARDIAC PAIN LEVEL 1-3; Start 11/28/16 at 06:00 Oxycodone/ Acetaminophen (Percocet (5/ 325)) 1 tab Q4H PRN PO REPORTED NON- CARDIAC PAIN 4-7 Last administered on 11/28/16 14:07; Admin Dose 1 TAB; Start at 06:00 Morphine Sulfate (morphine) 1 mg Q1H PRN IV PAIN NOT RELIEVED BY OTHERS Last administered on 11/28/16 18:00; Admin Dose 1 MG; Start 11/28/16 at 06:00 Ondansetron HCl (Zofran Inj) 4 mg Q4H PRN IV NAUSEA AND/OR VOMITING Last administered on 11/28/16 08:27; Admin Dose 4 MG; Start 11/28/16 at 06:00 Pantoprazole (Protonix Tab) 40 mg DAILY@06 PO Last administered on 12/04/16 06 :22; Admin Dose 40 MG; Start 11/29/16 at 08:30 Atorvastatin Calcium (Lipitor) 80 mg HS PO Last administered on 12/03/16 22:01 ; Admin Dose 80 MG; Start 11/29/16 at 21:00 Nitroglycerin (Nitroglycerin (Sl Tab) 0.4 Mg) 1 tab Q5M PRN SL ANGINA; Start at 10:00 Carvedilol (Coreg) 3.125 mg BID PO Last administered on 12/04/16 09:09; Admin Dose 3.125 MG; Start 11/30/16 at 21:00 Lisinopril (Zestril) 2.5 mg DAILY PO Last administered on 12/04/16 09:08; Admin Dose 2.5 MG; Start 12/01/16 at 09:00 Aspirin (Halfprin) 81 mg DAILY PO Last administered on 12/04/16 09:09; Admin Dose 81 MG; Start 12/01/16 at 09:00 Ticagrelor (Brilinta) 90 mg BID PO Last administered on 12/04/16 09:08; Admin Dose 90 MG; Start 11/30/16 at 21:00 Acetaminophen (Tylenol Tab) 650 mg Q4H PRN PO NON-CARDIAC PAIN LEVEL 1-3; Start 11/30/16 at 14:00 Oxycodone/ Acetaminophen (Percocet (5/ 325)) 1 tab Q4H PRN PO REPORTED NON- CARDIAC PAIN 4-7; Start 11/30/16 at 14:00 Morphine Sulfate (morphine) 1 mg Q1H PRN IV PAIN NOT RELIEVED BY OTHERS; Start 11/30/16 at 14:00 Al Hydrox/Mg Hydrox/Simethicone (Mag-Al Plus) 30 ml Q4H PRN PO GASTROINTESTINAL UPSET; Start 11/30/16 at 14:00 Ondansetron HCl (Zofran Inj) 4 mg Q4H PRN IV NAUSEA AND/OR VOMITING; Start 03/09 at 14:00 Furosemide (Lasix) 20 mg DAILY PO Last administered on 12/04/16t 09:09; Admin Dose 20 MG; Start 12/03/16 at 09:00 CIAT NUÑEZ Dec 04, 2016 11:20
--- NOTE | 2016-12-08 15:08 | CARRPT ---
DATE OF PROCEDURE: 11/30/2016 TITLE OF PROCEDURES: 1. Left heart catheterization. 2. Coronary angiography. 3. Percutaneous transluminal coronary angioplasty with placement of Synergy drug-eluting stents x 1 to diagonal; 2.25 x 20 mm. 4. Percutaneous transluminal coronary angioplasty with placement of drug-eluting stent Xience x 1 to circumflex; 2.25 x 23 mm. ATTENDING PHYSICIAN: Dr. Ricky Randolph. REFERRING PHYSICIAN: Dr. Mccloud. BRIEF HISTORY AND HOSPITAL COURSE: The patient is a 61-year-old male with a history of hypertension, who had initially presented with ST elevation myocardial infarction 2 days prior and underwent PTCA and stent placement to 100% occluded LAD, was noted to have residual stenoses in both his diagonal and circumflex and just continued to complain of recurrent chest pain. The patient is, therefore, brought back to reassess his LAD stent and to undergo possible PTCA and stent placement to additional obstructed vessels. PROCEDURE: After informed consent was obtained, the patient was brought to [facility] cardiac lab specialist where his left radial area was prepped and draped in usual sterile fashion. Two percent lidocaine was infiltrated in the left radial artery in order to achieve adequate local anesthesia. Using modified Seldinger technique, the left radial artery was cannulated and a 6-Malagasy arterial sheath was placed. A 6-Malagasy CLS 3 interventional guide was used to cannulate the left main coronary ostium. A 0.014 Balance Middleweight guidewire was passed distal to an area of in-stent restenosis in patient's LAD proximal stent. Subsequently, a noncompliant 3.5 x 12 mm balloon was used to post dilate this stent and improve the area of in- stent restenosis x 3 at 16 to 18 atmospheres. This was removed, and now attention was turned to the diagonal. Balance Middleweight guidewire was passed and attempted to pass distal to the stent strut. This proved difficult and subsequently a Permit Agent 50 guidewire was passed through the stent strut and placed in its diagonal. At this time, we attempted to pass a 2.0 x 12 mm balloon which proved not possible. Subsequently, a second wire, BMW, was added as a mayo wire and again we attempted to pass the balloon unsuccessfully. Subsequently, at this time, the BMW wire was pulled back and passed distal down the LAD. Subsequently, the stent struts in the LAD stent where the diagonal bifurcates, were post dilated in order to expand these and open the struts further just to allow passage of a stent. With a 3.5 noncompliant balloon up to 18 atmospheres, this was removed. At this point, we were able to pass a 1.25 balloon after a 1.5 still would not go through the stent strut. Inflations were made at the area of the stent strut and up to 16 to 18 atmospheres. This was removed. A 1.5 mm balloon was used to further predilate the stent strut in the very ostium of the diagonal. Subsequently, this was removed and a 2.0 x 18 mm balloon was used to perform balloon angioplasty upon the length of disease in the proximal to mid diagonal. Subsequently, at this time, this was removed. At this time, we were able to pass a 2.25 x 20 mm drug-eluting stent into the area of stenosis deployed at 16 atmospheres post dilated with a stent delivery system up to 16 atmospheres. A follow up angiogram was obtained revealing excellent result after deployment of the stent. CLEO III flow throughout the vessel. No signs of complications including perforation or dissection and no effect upon the LAD stent. Subsequently, at this time, the wires were pulled back and a Balance wire guide was passed distal down the circumflex. The circumflex vessel was predilated with a 2.0 x 20 mm balloon up to 16 to 18 atmospheres x 2. This was removed, and the lesion was stented with a 2.25 x 23 mm Xience drug-eluting stent deployed at 16 atmospheres, post dilated with the stent delivery system up to 18 atmospheres. The stent delivery system was removed. Follow up angiogram was obtained after receiving 200 mcg of IV nitroglycerin revealing excellent result after deployment of the stent. CLEO III flow throughout the vessel. No signs of complications including perforation or dissection. Subsequently, at this time, the interventional guidewires and guide were removed. The patient was reloaded with now Brilinta at 80 mg x 1. He had already received aspirin this morning, as the patient is thought to be a possible Plavix nonresponder given in-stent restenosis and a stent placed 2 days prior. This completed the procedure. There were no noted complications. FINDINGS CORONARY ANGIOGRAPHY: Left main 4 mm, ostial 20% stenosis. The LAD approximately is a 3.5 mm vessel, has a widely patent stent in it, but the stent has in-stent restenosis in its proximal portion at approximately 50%. In the mid distal portion of the LAD, there is another widely patent stent with no significant in-stent restenosis in it. There is a diagonal that bifurcates midway through the proximal stent and has an ostial 70% stenosis and then diffuse 70% to 80% stenosis at the mid portion of the vessel. The circumflex approximately is a 2.5 mm vessel, and its mid portion has an area of focal 70% to 80% stenosis followed by 70% stenosis. PTCA and stent placement: PTCA in the patient's in-stent restenosis of the proximal ostial LAD stent. Prior to PTCA, patient had a 50% to 60% in-stent restenosis in the proximal portion of the stent. Post PTCA, patient had no residual stenosis. CLEO III flow throughout the vessel and no signs of complications including perforation or dissection. PTCA and stent placement within diagonal. Prior to PTCA and stent placement within diagonal, patient had a long tubular 70% to 80% stenosis. Post PTCA and stent placement in diagonal, patient had no residual stenosis, CLEO III flow throughout the vessel and no complications including perforation or dissection, and no effect upon the LAD stent. PTCA and stent placement within circumflex. Prior to PTCA and stent placement within the circumflex, patient had an 80% stenosis followed by a 70% stenosis. Post PTCA and stent placement in the circumflex, patient had no residual stenosis, CLEO III flow throughout the vessel and no signs of complications including perforation or dissection. TOTAL FLUOROSCOPY TIME: 20 minutes. TOTAL CONTRAST: 240 mL. IMPRESSION: 1. Two-vessel obstructive coronary artery disease involving a mid circumflex lesion and the in-stent restenotic region in LAD as well as diagonal status post successful PTCA to in- stent restenosis of LAD, PTCA and stent placement to diagonal and PTCA and stent placement to circumflex. 2. Widely patent mid LAD stent. RECOMMENDATIONS: In light of the procedure findings at this time: 1. Maintain patient now on Brilinta 90 mg one tab p.o. b.i.d. 2. Aspirin now at 81 mg one tab p.o. daily. 3. Maximize medical management. 4. Aggressive risk factor reduction. 5. The patient will be readmitted to the ICU for post procedure observation and continued management of his presenting symptoms. Dictated By: Azeb Mccartney /paolat/ac /Document#: [id number] ; DR MCCLOUD
--- NOTE | 2016-12-09 03:36 | CARRPT ---
DATE OF PROCEDURE: 12/08/2016 TITLE OF PROCEDURES: 1. Left heart catheterization. 2. Coronary angiography. 3. Percutaneous transluminal coronary angioplasty with placement of Synergy drug-eluting stents x 3 to proximal mid and mid distal LAD, 3.5 x 20 mm, 3.5 x 8 mm and 2.75 x 20 mm. 4. Measurement of left ventricular end-diastolic pressure. 5. Mechanical thrombectomy. 6. Perclose closure device to right femoral artery. 7. Femoral angiography. 8. Moderate conscious sedation x 60 minutes. ATTENDING PHYSICIAN: Dr. Ricky Randolph. REFERRING PHYSICIAN: Dr. Stratton from the emergency department. INDICATION: ST elevation ND. BRIEF HISTORY: The patient is a 59-year-old male without significant past medical history who presented with complaints of back pain and chest pain of acute onset this a.m. Upon arrival, the patient's EKG revealed anterior ST elevation with [____] depressions. The patient was brought to the cardiac photofinishing laboratory worker in order to undergo left heart catheterization with probable PTCA and stent placement for treatment of ST elevation myocardial infarction. PROCEDURE: After informed consent was obtained, the patient was brought to [facility] cardiac photofinishing laboratory worker where his right femoral area was prepped and draped in usual sterile fashion. Two percent lidocaine was infiltrated into the right groin in order to achieve adequate local anesthesia. With modified Seldinger technique, the femoral artery was cannulated and a 6-Gabonese arterial sheath was placed and a 6-Gabonese JR4 catheter was used to cannulate the right coronary. [____] obtained. A JR 4 guidewire and a Q 3.5 guide was used to cannulate the left main coronary ostium [____] obtained. After finding 100% obstruction to the patient's LAD, moved directly to interventional procedure. The patient received an Angiomax bolus and then continuous infusion after checking the ACT and returning normal. A 0.014 [____] guidewire was passed distal to the lesion in the LAD and a 2.5 x 12 mm balloon was inflated into the proximal portion restoring CLEO III flow through the vessel. Subsequently, several inflations were made to the proximal portion with a 2.5 x 12 mm balloon. This was removed and a Pronto thrombectomy catheter was then passed to the distal portion of the LAD and back collecting a small amount of thrombotic material. Subsequently, at this time, the distal lesion in the LAD was stented with a 2.75 x 20 mm drug-eluting stent deployed at 16 atmospheres and post dilated with a stent delivery system to 22 atmospheres. Follow up angiography was obtained, revealing excellent result after deployment of the stent, CLEO III flow throughout the vessel and moderate stepdown at the distal end of the stent and no signs of complications including perforation or dissection. Subsequently, at this time, the stent delivery system was removed and a second stent was placed into the proximal original lesion that caused the STEMI, a 3.5 x 20 mm which was deployed at 14 atmospheres and post dilated with the stent delivery system at 16 atmospheres. Follow up angiography was obtained, revealing excellent result with deployment of this stent. There was just a small hazy area just distal to the stent, probably continued area of disease. Subsequently, a small 3.0 x 8 mm stent was placed across this area, deployed at 20 atmospheres, post dilated with [____] up to 22 atmospheres. A follow up angiogram was obtained, revealing excellent result with deployment of the stent. CLEO III flow throughout the vessel. No signs of complications including perforation or dissection. Subsequently, at this time, the patient had some sluggish flow. The patient was given a total of 600 of IC nicardipine improving flow to CLEO III. [____] was removed. The patient's wire was removed. The patient's [____] guide was removed. Follow up angiographic images of the right femoral arterial insertion site was obtained, revealing the sheath to be well placed in the right common femoral artery. Subsequently, a 6-Gabonese Perclose device was used to [____] complete procedure. There were no known complications. The patient had measurement of left ventricular end-diastolic pressure of 31, and no significant aortic stenosis by gradient. At the completion of the procedure, the patient received 600 mg of p.o. Plavix and 325 mg of aspirin. FINDINGS CORONARY ANGIOGRAPHY: Left main no significant stenoses. LAD approximately a 3.5 mm vessel, had 100% occlusion just at the takeoff of the diagonal. Once CLEO III flow was restored, the patient was found to have an 80% mid distal lesion. The patient has a proximal branching diagonal which is a 2.5 mm vessel and has an ostial 20% stenosis and then a mid branching diagonal which is a 2.5 mm vessel and has a mid body 70% to 80% stenosis. The circumflex approximately is a 3.5 mm vessel, and its mid portion has a [____] appearing 70% stenosis. There is a proximal branching obtuse marginal, which has a 95% lesion in its midportion, but appears to be a very small caliber vessel that does not cover a very territory thereafter. The right coronary artery approximately is a 3.5 mm vessel and a dominant vessel. It has a 20% proximal right coronary lesion and then a very sizeable PDA, a 3.5 mm vessel with a very focal-appearing 30% to 40% stenosis. The posterolateral branch is a 3 mm vessel, has no significant focal stenoses. TOTAL FLUOROSCOPY TIME: 11 minutes. TOTAL CONTRAST: 200 mL. IMPRESSION: 1. Two-vessel obstructive coronary artery disease involving a mid distal circumflex lesion, [____] appearing, and the 100% occlusion of the patient's LAD which was the culprit lesion for his ST elevation myocardial infarction, status post successful PTCA and stent placement x 3, drug-eluting stents to the mid and mid distal LAD. 2. Elevated left heart filling pressure of 31. 3. No significant aortic stenosis by gradient. RECOMMENDATIONS: In light of the procedure findings at this time, patient will be: 1. Maintained on aspirin 325 mg one tab p.o. daily indefinitely. 2. Plavix 75 mg one tab p.o. daily for at least one year. 3. [____] management. 4. Aggressive [____]. 5. The patient will be admitted to the ICU for post intervention observation and continued management of symptoms. Dictated By: Azeb Mccartney /fnt/ec /Document#: [id number]
== END 2016-12-04 13:12 | disposition home or self-care (01) | DRG 247 ==
LOC: E/R 03:13 → CCL 04:35 → ICU 06:13 → MS4 12-01 16:25
PROVIDERS: ADMIT Internal Medicine; ATTEND Internal Medicine
PROC: 02C03ZZ Extirpation of Matter from Coronary Artery, One Artery, Percutaneous Approach (ICD-10-PCS; 2016-11-28)
PROC: 3E073PZ Introduction of Platelet Inhibitor into Coronary Artery, Percutaneous Approach (ICD-10-PCS; 2016-11-28)
PROC: 4A023N7 Measurement of Cardiac Sampling and Pressure, Left Heart, Percutaneous Approach (ICD-10-PCS; 2016-11-28)
PROC: B210YZZ Fluoroscopy of Single Coronary Artery using Other Contrast (ICD-10-PCS; 2016-11-28)
PROC: 4A0335C Measurement of Arterial Flow, Coronary, Percutaneous Approach (ICD-10-PCS; 2016-11-28)
PROC: 027136Z Dilation of Coronary Artery, Two Arteries with Three Drug-eluting Intraluminal Devices, Percutaneous Approach (ICD-10-PCS; principal; 2016-11-28 04:30)
PROC: 02713ZZ Dilation of Coronary Artery, Two Arteries, Percutaneous Approach (ICD-10-PCS; 2016-11-28 04:30)
DX: I21.09 ST elevation (STEMI) myocardial infarction involving other coronary artery of anterior wall (principal); I42.9 Cardiomyopathy, unspecified; I25.82 Chronic total occlusion of coronary artery; T82.855A Stenosis of coronary artery stent, initial encounter; E78.5 Hyperlipidemia, unspecified; I25.10 Atherosclerotic heart disease of native coronary artery without angina pectoris; Z95.5 Presence of coronary angioplasty implant and graft
CPT/HCPCS: 36415; 71010; 80048; 80061; 80076; 82550; 82553; 83735; 84484; 85025; 85610; 85730; 87081; 92920; 93005; 93306; 96374; 96375; 97161; J1940; C1725; C1757; C1760; C1769; C1874; C1887; C1894; C9600; C9601; C9606; J0583; J1170; J1644; J2001; J2250; J2270; J2405; J3010; J7030; Q9967

== ENCOUNTER 2017-03-30 15:51 | Observation (INO) | payer OTHER ==
[~2017-03-30] VITALS: Ht 172.7 cm; Wt 78.3 kg
[~2017-03-30 15:51] MED LIST: ACET-141 PO; ASPI-664 PO; ATOR80TA75 PO; CARV3.1260 PO; LISI-313 PO; TICA90TA PO
[2017-03-30] MEDS ORDERED: NITROGLYCERIN 2% 1 GM OINT PKT TD STA (20:29)
[2017-03-30] MEDS ORDERED: ASPIRIN 81 MG TAB PO STA (20:29)
[2017-03-30] MEDS ORDERED: NITROGLYCERIN (SL) 0.4 MG TAB SL PRN ×2 (20:30→23:00)
--- NOTE | 2017-03-30 21:06 | RADRPT ---
PROCEDURE: XR Chest. CLINICAL INDICATION: Chest pain. TECHNIQUE: PA erect view of the chest was obtained. COMPARISON: None. FINDINGS: The cardiomediastinal silhouette is within normal limits. The lungs are clear. There is no evidenc e for pleural effusion, pneumothorax or pulmonary vascular congestion. The osseous structures are i ntact with no evidence for acute abnormality. RPTAT:HJJR IMPRESSION: No evidence for acute intrathoracic pathology. Physician Pradeep Date Time Electronically viewed and signed by Physician Pradeep on 03/30/2017 21:06 JR/
[2017-03-30 21:35] LABS: BASOPHIL # 0.1 10^3/ul (0.0-0.1); BASOPHILS % 0.7 % (0.0-2.0); EOSINOPHILS # 0.3 10^3/ul (0.0-0.5); EOSINOPHILS % 4.1 % (0.0-7.0); HEMATOCRIT 40.8 % (42.0-52.0); HEMOGLOBIN 13.4 g/dl (14.0-18.0); LYMPHOCYTES # 2.5 10^3/ul (0.8-2.9); LYMPHOCYTES % 36.1 % (15.0-51.0); MEAN CORPUSCULAR HEMOGLOBIN 31.5 pg (29.0-33.0); MEAN CORPUSCULAR HGB CONC 32.8 g/dl (32.0-37.0); MEAN PLATELET VOLUME 11.6 fl (7.4-10.4); MONOCYTE # 0.7 10^3/ul (0.3-0.9); MONOCYTES % 9.7 % (0.0-11.0); NEUTROPHIL # 3.4 10^3/ul (1.6-7.5); NEUTROPHILS % 49.1 % (39.0-77.0); PLATELET COUNT 175 10^3/UL (140-415); RED BLOOD COUNT 4.25 10^6/ul (4.70-6.10); RED CELL DISTRIBUTION WIDTH 13.8 % (11.5-14.5); WHITE BLOOD COUNT 6.9 10^3/ul (4.8-10.8)
[2017-03-30 21:52] LABS: ANION GAP 11 (8-16); BLOOD UREA NITROGEN 23 mg/dl (7-20); CALCIUM 8.6 mg/dl (8.4-10.2); CARBON DIOXIDE 27 mmol/L (21-31); CHLORIDE 109 mmol/L (97-110); GLUCOSE 116 mg/dl (70-220); POTASSIUM 3.8 mmol/L (3.5-5.1); SODIUM 143 mmol/L (135-144)
[2017-03-30 22:07] LABS: TROPONIN-I < 0.012 ng/ml (0.00-0.12)
--- NOTE | 2017-03-30 22:59 | ERD ---
ER Documentation Chief Complaint Chief Complaint pt sent from pmd for cp, back pain, sob. symptoms since wednesday HPI Patient is a 61-year-old male with coronary disease who presents with chest pain and back pain. He was sent by Dr. To for chest pain and back pain. He says the pain started in his upper back and this is what happened when he had heart attack this summer. He said it started last week went away and then came back today. The symptoms come and go. He is short of breath. He was concerned for a heart attack. He has had no treatment as of yet. ROS All systems reviewed and are negative except as per history of present illness. Medications Home Meds Active Scripts Aspirin* (Aspirin* EC) 81 Mg Tablet.dr, 81 MG PO DAILY for 30 Days, 11 Refills Prov:JOAQUIN,NRobertoMEKA 12/02/16 Lisinopril* (Lisinopril*) 5 Mg Tablet, 2.5 MG PO DAILY for 30 Days, TAB 3 Refills 1/2 tab po daily Prov:Cezar NUÑEZRobertoMEKA 12/02/16 Carvedilol* (Carvedilol*) 3.125 Mg Tablet, 3.125 MG PO BID for 30 Days, TAB 3 Refills Prov:JOAQUIN,NRobertoRAFAELJESUS 12/02/16 Atorvastatin* (Atorvastatin*) 80 Mg Tablet, 80 MG PO HS for 30 Days, TAB 3 Refills Prov:JOAQUIN,NRobertoRAFAELJESUS 12/02/16 Ticagrelor* (Brilinta*) 90 Mg Tablet, 90 MG PO BID for 30 Days, TAB 11 Refills Prov:JOAQUIN,NRobertoRAFAELJESUS 12/02/16 Reported Medications Acetaminophen* (Acetaminophen*) 500 MG Extra Strength Tablet, 500 MG PO Q4H Y for PAIN AND OR ELEVATED TEMP, TAB 11/28/16 Allergies Allergies: Coded Allergies: No Known Allergy (Unverified , 11/28/16) PMhx/Soc History of Surgery: No Hx Neurological Disorder: No Hx Respiratory Disorders: No Hx Cardiac Disorders: Yes ([place] 2 months ago, on blood thinner, dyslipidemia) Hx Psychiatric Problems: No Hx Miscellaneous Medical Probl: Yes (back pain) Hx Alcohol Use: Yes (occasional wine drinker) Hx Substance Use: No Hx Tobacco Use: No Smoking Status: Never smoker FmHx Family History: coronary disease Physical Exam Vitals Vital Signs Date Time Temp Pulse Resp B/P Pulse Ox O2 Delivery O2 Flow Rate FiO2 03/30/17 21:20 48 18 120/67 99 Room Air 03/30/17 16:16 98.0 58 18 124/62 98 Physical Exam Const: No acute distress Head: Atraumatic Eyes: Normal Conjunctiva ENT: Normal External Ears, Nose and Mouth. Neck: Full range of motion..~ No meningismus. Resp: Clear to auscultation bilaterally Cardio: Regular rate and rhythm, no murmurs Abd: Soft, non tender, non distended. Normal bowel sounds Skin: No petechiae or rashes Back: No midline or flank tenderness Ext: No cyanosis, or edema Neur: Awake and alert Psych: Normal Mood and Affect Result Diagram: 03/30/17211803/30/172118 Results 24 hrs Laboratory Tests Test 03/30/17 21:19 White Blood Count 6.910^3/ul Red Blood Count 4.2510^6/ul Hemoglobin 13.4g/dl Hematocrit 40.8% Mean Corpuscular Volume 96.0fl Mean Corpuscular Hemoglobin 31.5pg Mean Corpuscular Hemoglobin Concent 32.8g/dl Red Cell Distribution Width 13.8% Platelet Count 04224^3/UL Mean Platelet Volume 11.6fl Neutrophils % 49.1% Lymphocytes % 36.1% Monocytes % 9.7% Eosinophils % 4.1% Basophils % 0.7% Nucleated Red Blood Cells % 0.0/100WBC Neutrophils # 3.410^3/ul Lymphocytes # 2.510^3/ul Monocytes # 0.710^3/ul Eosinophils # 0.310^3/ul Basophils # 0.110^3/ul Nucleated Red Blood Cells # 0.010^3/ul Sodium Level 143mmol/L Potassium Level 3.8mmol/L Chloride Level 109mmol/L Carbon Dioxide Level 27mmol/L Anion Gap 11 Blood Urea Nitrogen 23mg/dl Creatinine 0.90mg/dl Glucose Level 116mg/dl Calcium Level 8.6mg/dl Troponin I < 0.012ng/ml Current Medications Medications (Trade) Dose Ordered Sig/Hawk Route PRN Reason Start Time Stop Time Status Last Admin Dose Admin Aspirin (Aspirin) 162 mg ONCE STAT PO 11/7/17 20:29 03/30/17 20:30 DC 03/30/17 21:25 Nitroglycerin (Nitroglycerin 2% Oint) 1 inch ONCE STAT TD 03/30/17 20:29 03/30/17 20:30 DC 03/30/17 21:25 Nitroglycerin (Nitroglycerin (Sl Tab) 0.4 Mg) 1 tab Q5M UP TO 3 DOSES PRN SL CHEST PAIN 03/30/17 20:30 Ondansetron HCl (Zofran Inj) 4 mg ER BRIDGE PRN IV NAUSEA AND/OR VOMITING 03/30/17 23:00 03/31/17 22:59 Acetaminophen (Tylenol Tab) 650 mg ER BRIDGE PRN PO MILD PAIN/FEVER 03/30/17 23:00 03/31/17 22:59 Aspirin (Halfprin) 81 mg DAILY PO 03/31/17 09:00 UNV Atorvastatin Calcium (Lipitor) 80 mg HS PO 03/31/17 21:00 UNV Carvedilol (Coreg) 3.125 mg BID PO 03/31/17 09:00 UNV Lisinopril (Zestril) 2.5 mg DAILY PO 03/31/17 09:00 UNV Ticagrelor (Brilinta) 90 mg BID PO 03/31/17 09:00 UNV IV Flush (NS 3 ml) 3 ml PER PROTOCOL IV 03/30/17 23:00 UNV Ondansetron HCl (Zofran Inj) 4 mg Q6H PRN IV NAUSEA AND/OR VOMITING 03/30/17 23:00 UNV Nitroglycerin (Nitroglycerin (Sl Tab) 0.4 Mg) 1 tab Q5M PRN SL CHEST PAIN 03/30/17 23:00 UNV Acetaminophen (Tylenol Tab) 650 mg Q6H PRN PO PAIN LEVEL 1-3 OR FEVER 03/30/17 23:00 UNV Acetaminophen/ Hydrocodone Bitart (Couch (5/325)) 1 tab Q6H PRN PO PAIN LEVEL 4-6 03/30/17 23:00 UNV Morphine Sulfate (morphine) 2 mg Q4H PRN IV PAIN LEVEL 7-10 03/30/17 23:00 UNV Docusate Sodium (Colace) 100 mg Q12H PRN PO CONSTIPATION 03/30/17 23:00 UNV Magnesium Hydroxide (Milk Of Mag) 30 ml DAILY PRN PO CONSTIPATION 03/30/17 23:00 UNV Bisacodyl (Dulcolax Supp) 10 mg DAILY PRN MI CONSTIPATION 03/30/17 23:00 UNV Famotidine (Pepcid) 20 mg Q12 PO 03/31/17 09:00 UNV Enoxaparin Sodium (Lovenox) 40 mg DAILY SC 03/31/17 09:00 UNV Procedures/MDM EKG read by me: Rate/Rhythm: Regular rate and rhythm at a normal rate Intervals: Normal Impression: No evidence of ischemia or arrhythmia X-ray shows no pneumonia or pneumothorax per radiology. Patient is a 61-year-old male with cardiac risk factors who presents with shortness of breath and upper back pain. I was concerned for acute coronary syndrome. The patient will be admitted to the care of Dr. Nuñez as he has [place] insurance. At this point I doubt pneumonia, pneumothorax, or pulmonary embolism. Dr. Nuñez asked for a CTA of the chest to rule out aortic dissection given the upper back pain. This has been ordered. He was given aspirin and nitroglycerin. Departure Diagnosis: Primary Impression: Dyspnea Dyspnea type: unspecified Qualified Code: R06.00 - Dyspnea, unspecified type Additional Impression: Back pain Back pain location: thoracic back pain Chronicity: acute Back pain laterality: midline Qualified Code: M54.6 - Acute midline thoracic back pain Condition: WENDY Meza MD Mar 30, 2017 22:59
[2017-03-30] MEDS ORDERED: BISACODYL 10 MG SUPP PR PRN (23:00)
[2017-03-30] MEDS ORDERED: ONDANSETRON 4 MG INJ IV PRN ×2 (23:00)
[2017-03-30] MEDS ORDERED: ACETAMINOPHEN 325 MG TAB PO PRN ×2 (23:00)
[2017-03-30] MEDS ORDERED: NACL 0.9% 3 ML SYG IV SCH (23:00)
[2017-03-30] MEDS ORDERED: MAGNESIUM HYDROXIDE 30ML CUP PO PRN (23:00)
[2017-03-30] MEDS ORDERED: DOCUSATE SODIUM 100 MG CAP PO PRN (23:00)
[2017-03-30] MEDS ORDERED: morphine 2 MG INJ IV PRN (23:00)
[2017-03-30] MEDS ORDERED: IOHEXOL 100 ML ONE (23:17)
[2017-03-30] MEDS ORDERED: IOHEXOL 350MG/ML 50 ML BTL ONE (23:17)
[2017-03-30] MEDS ORDERED: SOD CHLORIDE 0.9% 100 ML ONE (23:17)
--- NOTE | 2017-03-30 23:45 | RADRPT ---
PROCEDURE: CT angiogram of the chest with contrast. CLINICAL INDICATION: Chest pain. TECHNIQUE: CT angiogram of the chest was obtained using a multi-detector high-resolution CT. Con tiguous axial images were obtained during the dynamic injection of 125 cc of Omnipaque 350 intraveno us contrast. Coronal and sagittal reformatted images were obtained. 3-D reformatted images were al so obtained. Images were reviewed on a PACS workstation. One or more of the following dose reduction techniques were used: - Automated exposure control. - Adjustment of the mA and/or kV according to patient size. - Use of iterative reconstruction technique. Exam CTD/vol = 15.73 mGy. Total exam DLP = 643.41 mGy-cm. COMPARISON: None. FINDINGS: The main pulmonary artery followed to the segmental divisions are well opacified. There is no filli ng defect or evidence of pulmonary embolism. The heart is normal in size. There is no pericardial thickening or effusion. The aorta is of normal course and caliber without evidence of aneurysm or d issection. There is no evidence of chest wall mass. The visualized thyroid is unremarkable. There are no enla rged axillary lymph nodes. There are no enlarged mediastinal or hilar lymph nodes by CT criteria. There are two nodular densities within the right middle and upper lobes abutting the minor fissure m easuring 9 mm and 7 mm. There is mild bibasilar atelectasis. There is no parenchymal consolidation o r pleural effusion. The central tracheobronchial tree is within normal limits. Limited evaluation of the upper abdomen is unremarkable. IMPRESSION: No evidence of pulmonary embolism or aortic dissection. Mild bibasilar atelectasis. Two nodular densities within the right middle and upper lobes abutting the minor fissure measuring 9 mm and 7 mm. Follow-up by Fleischner guidelines is recommended to .Juan Aguilar MD, Date Time Electronically viewed and signed by .Juan Aguilar MD, MD on 03/30/2017 23:45 .T/
[2017-03-31] VITALS (13 sets, daily range): BP systolic 93–115; BP diastolic 58–66; PULSE 39–61; RESP 17–20; Ht 172.7 cm; Wt 78.3 kg
[2017-03-31] MEDS ORDERED: TYL500 PO (00:04)
[2017-03-31] MEDS ORDERED: MULTI PO (00:04)
[2017-03-31 03:43] LABS: CREATINE KINASE 92 IU/L (23-200)
[2017-03-31 04:02] LABS: CK-MB 1.28 ng/ml (0.0-2.4); TROPONIN-I < 0.012 ng/ml (0.00-0.12)
[2017-03-31 08:11] LABS: ALBUMIN 3.6 g/dl (3.3-4.9); ALBUMIN/GLOBULIN RATIO 1.24; CALCIUM 8.5 mg/dl (8.4-10.2); CHOL/HDL RATIO 2.4 RATIO; CREATININE 0.77 mg/dl (0.61-1.24); MAGNESIUM 1.9 mg/dl (1.7-2.5); TOTAL PROTEIN 6.5 g/dl (6.1-8.1)
[2017-03-31 08:16] LABS: CREATINE KINASE 80 IU/L (23-200)
[2017-03-31] MEDS: HYDROCODONE/APAP (5/325) TAB PO PRN ×2 (08:16→16:00)
[2017-03-31] MEDS: ASPIRIN (EC) 81 MG TAB PO SCH (08:17)
[2017-03-31] MEDS: FAMOTIDINE 20 MG TAB PO SCH ×2 (08:17→21:30)
[2017-03-31] MEDS: LISINOPRIL 5 MG TAB PO SCH (08:21)
[2017-03-31 08:30] LABS: CK-MB 1.11 ng/ml (0.0-2.4); TROPONIN-I < 0.012 ng/ml (0.00-0.12)
[2017-03-31] MEDS: TICAGRELOR 90 MG TABLET PO SCH ×2 (11:22→21:32)
[2017-03-31] MEDS: ENOXAPARIN 40 MG/0.4 ML SYG SC SCH (11:23)
--- NOTE | 2017-03-31 11:36 | HP ---
Date/Time of Note Date/Time of Note DATE: 03/31/17 TIME: 11:36 Assessment/Plan VTE Prophylaxis VTE Prophylaxis Intervention: LMWH Lines/Catheters IV Catheter Type (from [facility]): [facility] Urinary Cath still in place: No Assessment/Plan Assessment/Plan 61-year-old male with: 1. Episode of severe chest pressure and shortness of breath approximately 4-5 days ago, and recurrence of his upper back pain which are symptoms similar to the ones he had 2 months ago when he had his acute RI requiring up to 5 stents placed Patient has been ruled out for acute coronary syndrome, cardiac enzymes are negative 3, EKG stable. He told me he just flew back from [place] and was in [place] these past few days, CT angiogram of the chest is negative for pulmonary embolism. Dr. Randolph, who saw the patient on his last admission, has been consulted, I will discuss if he needs a repeat echocardiogram or any further studies. For now he will be kept n.p.o. until seen by cardiology. No arrhythmias on telemetry, sinus bradycardia lowest was 40 Repeat 2D echocardiogram ordered. 2. Multivessel, coronary artery disease, status post stenting 4 months ago, continue antiplatelet therapy, patient on aspirin and Brilinta as he has failed Plavix on his last admission. Continue statin therapy and unclear if able to tolerate carvedilol and lisinopril. 3. Relative hypotension: Patient does not seem to tolerate the carvedilol and or the lisinopril, systolic blood pressures in the 90s, those medications have been held. He does have a blood pressure machine but does not check his blood pressure but may have been presyncopal. Walking this past few days 4. Hyperlipidemia, status post AMI and known CAD, continue Lipitor Prophylaxis: Pepcid for GI prophylaxis, Lovenox for DVT prophylaxis Disposition: Cardiology evaluation pending, if no further workup needed, patient will be discharged home today. HPI/ROS Admit Date/Time Admit Date/Time Mar 30, 2017 at 22:37 Hx of Present Illness Chief complaint: Shortness of breath and chest pressure 3 days ago and now are recurrent upper back pain History of presenting illness: 61-year-old male with known multivessel coronary artery disease, status post a two-stage vessel stenting on his last admission back in November 2016, known to be Plavix resistant, was discharged on aspirin and Brilinta, has been compliant with medications and doing fairly well until this past 4 days when he had an episode of severe chest pressure with shortness of breath and yesterday was having recurrence of his upper back pain which was the symptoms he had on his previous heart attack in November 2016. Patient was actually in [place] on vacation, he just flew back yesterday. He reports that 4- 5 days ago after breakfast he had an episode of severe chest pressure with shortness of breath that lasted less than a minute, according to the the patient was also pale and ashen when this happened, he eventually was able to catch his breath back and was asymptomatic after that. He reports that he has been experiencing this upper back pain which is similar to the symptoms he had on his previous heart attack, he reports that this upper back pain seems to be worse when he is sitting or exerting himself, it sounds like he could be still muscular. He denies any fevers, chills, cough, diaphoresis, nausea or vomiting. He was sent to the emergency department by his primary care physician, in the ER his EKG did show low voltage QRSs and sinus rhythm with heart rate in the upper 50s. He is noted to have a systolic blood pressures upper 90s-100. He does not check his blood pressure at home but does take his carvedilol and lisinopril, it is unclear if he is having episodes of orthostatic hypotension Cardiac enzymes are negative overnight, he stable on telemetry just noted to have sinus bradycardia down to 40s overnight. He denies chest pressure this morning he still having the upper back pain. He denies dizziness, he denies lower extremity edema. Because of his recent travel, CT angiogram of the chest was done and came back negative for pulmonary embolus. He is currently n.p.o. awaiting evaluation from Dr. Randolph, in the meantime I will order 2D echocardiogram. ROS Constitutional: no complaints Eyes: no complaints ENT: no complaints Respiratory: no complaints Cardiovascular: chest pain (chest pressure x 1 ), lightheadedness (x1 episode ) Gastrointestinal: no complaints Genitourinary: no complaints Musculoskeletal: back pain (upper back ) Skin: no complaints Neurologic: no complaints Endocrine: no complaints Lymphatic: no complaints Psychological: no complaints PMH/Family/Social Past Medical History 1. Status post ST-elevation myocardial infarction and PTCA 2 with stenting of LAD x3 stents, 1x diagonal and 1x circumflex in November 2016 2. Coronary artery disease, multivessel disease. Past Surgical History Past Surgical Hx: no surgical history Family History Significant Family History: no pertinent family hx Social History Alcohol Use: none (Quit all alcohol consumption approximately 4 months ago) Smoking Status: Never smoker Drug Use: none Exam/Review of Systems Vital Signs Vitals Vital Signs Date Time Temp Pulse Resp B/P Pulse Ox O2 Delivery O2 Flow Rate FiO2 03/31/17 08:37 55 03/31/17 07:59 97.4 18 97/58 96 03/31/17 00:00 Room Air Intake and Output 03/30/17 03/30/17 03/31/17 15:00 23:00 07:00 Intake Total 0 ml Balance 0 ml Exam Constitutional: alert, oriented, well developed Respiratory: clear to auscultation, normal air movement Cardiovascular: nl pulses, regular rate and rhythm Gastrointestinal: non-tender, soft Musculoskeletal: nl extremities to inspection Extremities: normal pulses, other (No edema, clubbing or cyanosis) Neurological: TESTS SUPERINTENDENT II-XII intact, nl mental status, nl speech, nl strength Labs Result Diagram: 03/30/17211803/31/17 0716 Medications Medications Current Medications Aspirin (Halfprin) 81 mg DAILY PO Last administered on 03/31/17 08:17; Admin Dose 81 MG; Start 03/31/17 at 09:00 Atorvastatin Calcium (Lipitor) 80 mg HS PO ; Start 03/31/17 at 21:00 Carvedilol (Coreg) 3.125 mg BID PO ; Start 03/31/17 at 09:00 Lisinopril (Zestril) 2.5 mg DAILY PO ; Start 03/31/17 at 09:00 Ticagrelor (Brilinta) 90 mg BID PO Last administered on 03/31/17 11:22; Admin Dose 90 MG; Start 03/31/17 at 09:00 Ondansetron HCl (Zofran Inj) 4 mg Q6H PRN IV NAUSEA AND/OR VOMITING; Start 03/30/17 at 23:00 Nitroglycerin (Nitroglycerin (Sl Tab) 0.4 Mg) 1 tab Q5M PRN SL CHEST PAIN; Start 03/30/17 at 23:00 Acetaminophen (Tylenol Tab) 650 mg Q6H PRN PO PAIN LEVEL 1-3 OR FEVER; Start 03/30/17 at 23:00 Acetaminophen/ Hydrocodone Bitart ([place] (5/325)) 1 tab Q6H PRN PO PAIN LEVEL 4 -6 Last administered on 03/31/17 08:16; Admin Dose 1 TAB; Start 03/30/17 at 23: 00 Morphine Sulfate (morphine) 2 mg Q4H PRN IV PAIN LEVEL 7-10; Start 03/30/17 at 23:00 Docusate Sodium (Colace) 100 mg Q12H PRN PO CONSTIPATION; Start 03/30/17 at 23: 00 Magnesium Hydroxide (Milk Of Mag) 30 ml DAILY PRN PO CONSTIPATION; Start at 23:00 Bisacodyl (Dulcolax Supp) 10 mg DAILY PRN [place] CONSTIPATION; Start 03/30/17 at 23 :00 Famotidine (Pepcid) 20 mg Q12 PO Last administered on 03/31/17 08:17; Admin Dose 20 MG; Start 03/31/17 at 09:00 Enoxaparin Sodium (Lovenox) 40 mg DAILY SC Last administered on 03/31/17 11:23 ; Admin Dose 40 MG; Start 03/31/17 at 09:00 Procedures Procedures PROCEDURE: CT angiogram of the chest with contrast. CLINICAL INDICATION: Chest pain. TECHNIQUE: CT angiogram of the chest was obtained using a multi-detector high -resolution CT. Contiguous axial images were obtained during the dynamic injection of 125 cc of Omnipaque 350 intravenous contrast. Coronal and sagittal reformatted images were obtained. 3-D reformatted images were also obtained. Images were reviewed on a PACS workstation. One or more of the following dose reduction techniques were used: - Automated exposure control. - Adjustment of the mA and/or kV according to patient size. - Use of iterative reconstruction technique. Exam CTD/vol = 15.73 mGy. Total exam DLP = 643.41 mGy-cm. COMPARISON: None. FINDINGS: The main pulmonary artery followed to the segmental divisions are well opacified. There is no filling defect or evidence of pulmonary embolism. The heart is normal in size. There is no pericardial thickening or effusion. The aorta is of normal course and caliber without evidence of aneurysm or dissection. There is no evidence of chest wall mass. The visualized thyroid is unremarkable. There are no enlarged axillary lymph nodes. There are no enlarged mediastinal or hilar lymph nodes by CT criteria. There are two nodular densities within the right middle and upper lobes abutting the minor fissure measuring 9 mm and 7 mm. There is mild bibasilar atelectasis. There is no parenchymal consolidation or pleural effusion. The central tracheobronchial tree is within normal limits. Limited evaluation of the upper abdomen is unremarkable. IMPRESSION: No evidence of pulmonary embolism or aortic dissection. Mild bibasilar atelectasis. Two nodular densities within the right middle and upper lobes abutting the minor fissure measuring 9 mm and 7 mm. Follow-up by Fleischner guidelines is recommended to .Juan Aguilar MD, Date Time Electronically viewed and signed by .Juan Aguilar MD, on 03/30/2017 23:45 .T/ CC: WENDY WALKER MD PROCEDURE: XR Chest. CLINICAL INDICATION: Chest pain. TECHNIQUE: PA erect view of the chest was obtained. COMPARISON: None. FINDINGS: The cardiomediastinal silhouette is within normal limits. The lungs are clear. There is no evidence for pleural effusion, pneumothorax or pulmonary vascular congestion. The osseous structures are intact with no evidence for acute abnormality. RPTAT:HJJR IMPRESSION: No evidence for acute intrathoracic pathology. Physician Pradeep Date Time Electronically viewed and signed by Physician Pradeep on 03/30/2017 21:06 JR/ EKG: Sinus bradycardia, low voltage QRSs CAIT NUÑEZ Mar 31, 2017 11:36
--- NOTE | 2017-03-31 16:04 | PDOCDIS ---
Discharge Instructions CONDITION Patient Condition: Good HOME CARE INSTRUCTIONS: Diet Instructions: Low Fat /Cholesterol ACTIVITY: Activity Restrictions: No Restrictions FOLLOW UP/APPOINTMENTS Follow-up Plan Follow-up with primary care physician within 1 week Follow-up with outpatient cardiology within 2-4 weeks CAIT NUÑEZ Mar 31, 2017 16:04
[2017-03-31] MEDS ORDERED: ATORVASTATIN 80 MG TAB PO SCH (21:00)
--- NOTE | 2017-03-31 23:35 | CONS ---
DATE OF ADMISSION: 03/30/2017 DATE OF CONSULTATION: 03/31/2017 REASON FOR CONSULTATION: Chest pain, assess for acute coronary syndrome. REQUESTING PHYSICIAN: Dr. Nuñez. HISTORY OF PRESENT ILLNESS: Mr. Batista is a very pleasant 61-year-old male known to myself from prior hospital admission when he presented with an acute [place] 11/2016 and underwent stenting to LAD an d in a staged procedure to circumflex. He has history of dyslipidemia, hypertension, cardiomyopathy , decreased left ventricular ejection fraction, and now presents with episodes of recurrent substern al chest pain described as a pressure-like sensation with additional upper back pain, which patient states is similar to the pain he had prior his myocardial infarction in November. The patient had addit ionally recently been in [place] and had flown back recently. Has been having shortness of breath an d had an episode in [place] where he felt chest pressure. Upon arrival in the emergency department, temperature of 98, blood pressure 124/62, pulse 58, respiratory rate 18, saturating 98%. [facility] revealed sodium 143, potassium 3.8, creatinine 0.9, BUN 23. Troponin negative. LDL 37, HD L 34. White blood cell count 6.9, hemoglobin 13.4, platelet count 175. Patient underwent a chest x -ray revealing no evidence of acute intrathoracic pathology and a CT/CTA, which revealed no evidence of pulmonary embolism or aortic dissection. Mild bibasilar atelectasis. The patient's electrocard iogram revealed sinus bradycardia, rate of 57, normal axis, anteroseptal Q's, lateral T-wave inversi on. Patient subsequently admitted to the floor and since admit to the floor, has ongoing back pain. At this time has been monitored on telemetry with some episodes of bradycardia to the 40s. The kenia riddle additionally has had some borderline blood pressures in the 90s. PAST MEDICAL HISTORY: As above in HPI. MEDICATIONS CURRENTLY IN THE HOSPITAL: 1. Lipitor 80 mg at bedtime. 2. Aspirin 81 mg daily. 3. Carvedilol 3.125 mg p.o. b.i.d. 4. Zestril 2.5 mg daily. 5. Brilinta 9 mg b.i.d. 6. Pepcid 20 mg q.12h. 7. Lovenox 40 mg subcutaneous daily. 8. Zofran p.r.n. 9. Tylenol p.r.n. 10. Sublingual nitroglycerin p.r.n. 11. Morphine p.r.n. 12. Dulcolax. ALLERGIES: NO KNOWN DRUG ALLERGIES. SOCIAL HISTORY: No tobacco, ETOH or illicit drug use. FAMILY HISTORY: No history of sudden cardiac or early CAD. REVIEW OF SYSTEMS: As above in HPI. CONSTITUTIONAL: No fevers, chills. PULMONARY: No shortness of breath. CARDIOVASCULAR: Chest pain. GASTROINTESTINAL: No vomiting. GENITOURINARY: No hematuria. MUSCULOSKELETAL: Back pain. PSYCHIATRIC: No documented psych history. NEUROLOGIC: No documented CVA. PHYSICAL EXAMINATION VITAL SIGNS: Temperature 97.8, blood pressure most recently 115/60, pulse 53, saturating 96%. GENERAL: The patient is alert, awake, complaining of intermittent back and chest pain. NECK: JVP approximately 8 cm of water. CHEST: Fair air movement throughout. HEART: Bradycardic, regular rhythm, normal S1, S2, I/ systolic murmur, nondisplaced PMI. ABDOMEN: Positive bowel sounds, soft. EXTREMITIES: No pitting edema, 1+ pulses bilaterally, posterior tibial. LABORATORIES: As above in HPI, with most recent from today: Sodium of 142, potassium 4.0, creatini ne 0.7, BUN 17. Troponin negative x3. LDL of 37, HDL 34. IMAGING STUDIES: As above in HPI. No further imaging studies for my review at this time. ECG: As above in HPI. No further electrocardiograms for my review at this time. IMPRESSION: 1. Chest pain, assess for acute coronary syndrome. 2. History of percutaneous transluminal coronary angioplasty and stent placement to left anterior d escending and circumflex in 11/2016, per patient taking medication with good compliance. 3. Bradycardia. 4. Hypotension, borderline. 5. History of cardiomyopathy, decreased left ventricular ejection fraction, last only approximately 35 to 40% by echo 11/2016 at time of myocardial infarction. 6. Back pain. 7. Anemia. 8. Dyslipidemia with low HDL. RECOMMENDATIONS: 1. At this time would maintain patient on telemetry monitoring to follow rhythm and rate control cl osely. 2. Would hold the patient's carvedilol at this time given intermittent bradycardia. Continue Zestr il only as tolerated for treatment of cardiomyopathy. Continue the patient's dual antiplatelet ther apy with aspirin and Brilinta. Continue the patient's statin therapy. 3. Send additional troponin to assure the patient has not had any recent acute coronary syndrome le nding to chest pain and back pain. 4. Follow patient's 2D echo done for assessment of ejection fraction, wall motion and any major german ve abnormalities. Given recurrent chest pain, will place the patient in for a Lexiscan stress test to further assess for any significant obstructive coronary artery disease leading to chest pain and subsequent readmit to the hospital. 5. Additionally, will check a TSH to be sure that subclinical hypothyroidism is not contributing to bouts of bradycardia. Thank you for allowing me to take part in the care of this patient. I will continue to follow very closely with you with further recommendations to be made as the patient progresses through his [facility] clinical course. Dictated By: MIRIAM OCHOA/ECTOR Conf#: [id number] DID#: [id number] CC: CAIT NUÑEZ MD;*End*
[2017-04-01] VITALS (8 sets, daily range): BP systolic 105–116; BP diastolic 62–67; PULSE 47–57; RESP 17–20
[2017-04-01] MEDS: ASPIRIN (EC) 81 MG TAB PO SCH (09:34)
[2017-04-01] MEDS: FAMOTIDINE 20 MG TAB PO SCH (09:34)
[2017-04-01] MEDS: LISINOPRIL 5 MG TAB PO SCH (09:34)
[2017-04-01] MEDS: TICAGRELOR 90 MG TABLET PO SCH (09:40)
[2017-04-01] MEDS: ENOXAPARIN 40 MG/0.4 ML SYG SC SCH (09:40)
[2017-04-01] MEDS ORDERED: REGADENOSON 0.4 MG/5 ML SYG ONE (10:07)
--- NOTE | 2017-04-01 10:44 | CONS ---
Date/Time of Note Date/Time of Note DATE: 04/01/17 TIME: 10:41 Assessment/Plan Assessment/Plan Chief Complaint/Hosp Course IMPRESSION: 1. Chest pain, assess for acute coronary syndrome.-negative trop x 3 2. History of percutaneous transluminal coronary angioplasty and stent placement to left anterior descending and circumflex in 11/2016, per patient taking medication with good compliance. 3. Bradycardia.-NL TSH 4. Hypotension, borderline. 5. History of cardiomyopathy, decreased left ventricular ejection fraction, last only approximately 35 to 40% by echo 11/2016 at time of myocardial infarction. 6. Back pain. 7. Anemia. 8. Dyslipidemia with low HDL. Recc: -Tele -Continue asa/brilinta -Continue statin/FELIPE -No miguel agents given bradycardia -STart ranexa -Lexiscan stress test today Problems: Consultation Date/Type/Reason Admit Date/Time Mar 30, 2017 at 22:37 Initial Consult Date 03/31/2017 Type of Consultation: cardiology Reason for Consultation chest pain Referring Provider: CAIT NUÑEZ Exam/Review of Systems Vital Signs Vitals Vital Signs Date Time Temp Pulse Resp B/P Pulse Ox O2 Delivery O2 Flow Rate FiO2 04/01/17 08:06 49 04/01/17 07:58 97.7 17 116/67 97 03/31/17 00:00 Room Air Intake and Output 03/31/17 03/31/17 04/01/17 14:59 22:59 06:59 Intake Total 300 ml Balance 300 ml Exam Review of Systems: CONSTITUTIONAL: No fevers, chills. PULMONARY: No sob CARDIOVASCULAR:intermittent chest pain GASTROINTESTINAL: No nausea/vomiting. GENITOURINARY: No hematuria/dysuria. MUSCULOSKELETAL: No myagias/arthalgias. PSYCHIATRIC: The patient denies depression. NEUROLOGIC: No weakness Constitutional: alert, oriented Psych: no complaints Head: normocephalic ENMT: mucosa pink and moist Neck: jvd (8-9 cm water), supple Respiratory: diminished breath sounds (at bases/B) Cardiovascular: regular rate and rhythm Gastrointestinal: non-tender, soft Extremities: edema (none) Neurological: other (No focal deficits) Results Result Diagram: 03/30/17211803/31/17 0716 Results 24 hrs Laboratory Tests Test 04/01/17 07:23 Troponin I < 0.012 Medications Medications Current Medications Aspirin (Halfprin) 81 mg DAILY PO Last administered on 04/01/17 09:34; Admin Dose 81 MG; Start 03/31/17 at 09:00 Atorvastatin Calcium (Lipitor) 80 mg HS PO Last administered on 03/31/17 21:30 ; Admin Dose 80 MG; Start 03/31/17 at 21:00 Lisinopril (Zestril) 2.5 mg DAILY PO Last administered on 04/01/17 09:34; Admin Dose 2.5 MG; Start 03/31/17 at 09:00 Ticagrelor (Brilinta) 90 mg BID PO Last administered on 04/01/17 09:40; Admin Dose 90 MG; Start 03/31/17 at 09:00 Ondansetron HCl (Zofran Inj) 4 mg Q6H PRN IV NAUSEA AND/OR VOMITING; Start 03/30/17 at 23:00 Nitroglycerin (Nitroglycerin (Sl Tab) 0.4 Mg) 1 tab Q5M PRN SL CHEST PAIN; Start 03/30/17 at 23:00 Acetaminophen (Tylenol Tab) 650 mg Q6H PRN PO PAIN LEVEL 1-3 OR FEVER; Start 03/30/17 at 23:00 Acetaminophen/ Hydrocodone Bitart ([place] (5/325)) 1 tab Q6H PRN PO PAIN LEVEL 4 -6 Last administered on 03/31/17 16:00; Admin Dose 1 TAB; Start 03/30/17 at 23: 00 Morphine Sulfate (morphine) 2 mg Q4H PRN IV PAIN LEVEL 7-10; Start 03/30/17 at 23:00 Docusate Sodium (Colace) 100 mg Q12H PRN PO CONSTIPATION; Start 03/30/17 at 23: 00 Magnesium Hydroxide (Milk Of Mag) 30 ml DAILY PRN PO CONSTIPATION; Start at 23:00 Bisacodyl (Dulcolax Supp) 10 mg DAILY PRN [place] CONSTIPATION; Start 03/30/17 at 23 :00 Famotidine (Pepcid) 20 mg Q12 PO Last administered on 04/01/17 09:34; Admin Dose 20 MG; Start 03/31/17 at 09:00 Enoxaparin Sodium (Lovenox) 40 mg DAILY SC Last administered on 04/01/17 09:40 ; Admin Dose 40 MG; Start 03/31/17 at 09:00 MIRIAM PEDROZA Apr 01, 2017 10:44
--- NOTE | 2017-04-01 12:04 | CARRPT ---
DATE OF PROCEDURE: 04/01/2017 INDICATIONS: Chest pain, assess for ischemia. BASELINE VITAL SIGNS AND ELECTROCARDIOGRAM: Pulse 60, blood pressure 112/78. Electrocardiogram wit h sinus bradycardia at 52 with normal axis, anteroseptal Q's, low voltage throughout. PROCEDURE: The patient underwent standard Lexiscan infusion protocol over 10 seconds followed by ra diolabeled tracer. The patient's test was stopped due to completion of protocol. Maximal achieved blood pressure during the test 121/81. Maximum heart rate during the test 86. ELECTROCARDIOGRAM FINDINGS: The patient did not develop any new Lexiscan-induced ST or T-wave oakes es from baseline abnormalities. No documented PVCs. SYMPTOMS: The patient had no complaints of chest pain or shortness of breath during stress testing. IMPRESSION: 1. No Lexiscan-induced ST or T-wave changes from baseline abnormalities diagnostic of cardiac ische heather. 2. No complaints of chest pain or shortness of breath during stress testing. 3. No documented premature ventricular contractions during stress testing. 4. Report of nuclear images to follow in separate dictation. Dictated By: MIRIAM OCHOA/ECTOR Conf#: [id number] DID#: [id number]
--- NOTE | 2017-04-01 12:27 | PN ---
Date/Time of Note Date/Time of Note DATE: 04/01/17 TIME: 12:21 Assessment/Plan VTE Prophylaxis VTE Prophylaxis Intervention: LMWH Lines/Catheters IV [facility]from [facility] Saline [facility] Urinary Cath still in place: No Assessment/Plan Assessment/Plan 61-year-old male with: 1. Episode of severe chest pressure and shortness of breath approximately 4-5 days ago, and recurrence of his upper back pain which are symptoms similar to the ones he had 2 months ago when he had his acute NC requiring up to 5 stents placed Patient has been ruled out for acute coronary syndrome, cardiac enzymes are negative 3, EKG stable. CT angiogram of the chest is negative for pulmonary embolism. Appreciate assistance from Dr. Randolph, 2D echocardiogram has been done and patient had a stress test this morning. If stress test negative he will be discharged home. No arrhythmias on telemetry, sinus bradycardia lowest was 40, carvedilol has been discontinued. 2. Multivessel, coronary artery disease, status post stenting 4 months ago, continue antiplatelet therapy, patient on aspirin and Brilinta as he has failed Plavix on his last admission. Continue statin therapy and lisinopril. Seems to be unable to tolerate carvedilol with bradycardia 3. Relative hypotension: Carvedilol discontinued, low-dose lisinopril if tolerated. 4. Hyperlipidemia, status post AMI and known CAD, continue Lipitor. Prophylaxis: Pepcid for GI prophylaxis, Lovenox for DVT prophylaxis Disposition: Stress test done today, will discharge home if stress test negative. Appreciate assistance from Dr. Randolph. Subjective 24 Hr Interval Summary Free Text/Dictation Patient doing well this morning, no chest pains reported throughout the stay, he does have this ongoing back pain which is muscular at this point. Lexiscan stress test has been done this morning, if negative will discharge home. He is not tolerating beta blockers, he will be discharged on low dose lisinopril. Exam/Review of Systems Vital Signs Vitals Vital Signs Date Time Temp Pulse Resp B/P Pulse Ox O2 Delivery O2 Flow Rate FiO2 04/01/17 12:18 52 04/01/17 07:58 97.7 17 116/67 97 03/31/17 00:00 Room Air Intake and Output 03/31/17 03/31/17 04/01/17 15:00 23:00 07:00 Intake Total 300 ml Balance 300 ml Exam Constitutional: alert, oriented, well developed Respiratory: clear to auscultation, normal air movement Cardiovascular: nl pulses, regular rate and rhythm Gastrointestinal: non-tender, soft Musculoskeletal: nl extremities to inspection, other (Back pain, reproducible, likely muscular) Extremities: normal pulses, other (No edema, clubbing or cyanosis) Neurological: HEDIS NURSE II-XII intact, nl mental status, nl speech, nl strength Results Result Diagram: 03/30/17211803/31/17715 Results 24 hrs Laboratory Tests Test 04/01/17 07:23 Troponin I < 0.012 Medications Medications Current Medications Aspirin (Halfprin) 81 mg DAILY PO Last administered on 04/01/17 09:34; Admin Dose 81 MG; Start 03/31/17 at 09:00 Atorvastatin Calcium (Lipitor) 80 mg HS PO Last administered on 03/31/17 21:30 ; Admin Dose 80 MG; Start 03/31/17 at 21:00 Lisinopril (Zestril) 2.5 mg DAILY PO Last administered on 04/01/17 09:34; Admin Dose 2.5 MG; Start 03/31/17 at 09:00 Ticagrelor (Brilinta) 90 mg BID PO Last administered on 04/01/17 09:40; Admin Dose 90 MG; Start 03/31/17 at 09:00 Ondansetron HCl (Zofran Inj) 4 mg Q6H PRN IV NAUSEA AND/OR VOMITING; Start 03/30/17 at 23:00 Nitroglycerin (Nitroglycerin (Sl Tab) 0.4 Mg) 1 tab Q5M PRN SL CHEST PAIN; Start 03/30/17 at 23:00 Acetaminophen (Tylenol Tab) 650 mg Q6H PRN PO PAIN LEVEL 1-3 OR FEVER; Start 03/30/17 at 23:00 Acetaminophen/ Hydrocodone Bitart ([place] (5/325)) 1 tab Q6H PRN PO PAIN LEVEL 4 -6 Last administered on 03/31/17 16:00; Admin Dose 1 TAB; Start 03/30/17 at 23: 00 Morphine Sulfate (morphine) 2 mg Q4H PRN IV PAIN LEVEL 7-10; Start 03/30/17 at 23:00 Docusate Sodium (Colace) 100 mg Q12H PRN PO CONSTIPATION; Start 03/30/17 at 23: 00 Magnesium Hydroxide (Milk Of Mag) 30 ml DAILY PRN PO CONSTIPATION; Start at 23:00 Bisacodyl (Dulcolax Supp) 10 mg DAILY PRN CA CONSTIPATION; Start 03/30/17 at 23 :00 Famotidine (Pepcid) 20 mg Q12 PO Last administered on 04/01/17 09:34; Admin Dose 20 MG; Start 03/31/17 at 09:00 Enoxaparin Sodium (Lovenox) 40 mg DAILY SC Last administered on 04/01/17 09:40 ; Admin Dose 40 MG; Start 03/31/17 at 09:00 Ranolazine (Ranexa) 500 mg Q12 PO ; Start 04/01/17 at 21:00 CAIT NUÑEZ Apr 01, 2017 12:27
[2017-04-01] MEDS ORDERED: RANO500T2 PO (12:56)
--- NOTE | 2017-04-01 13:03 | RADRPT ---
Vent Rate: 57 bpm RR Interval: 0 msec VA Interval: 160 msec QRS Duration: 90 msec QT Interval: 412 msec QTC Interval: 401 msec P-R-T Stuart: 56 - 40 - 79 degrees Sinus bradycardia Septal infarct , age undetermined Abnormal ECG Electronically Signed By: Aubrey Lyle [id number]
--- NOTE | 2017-04-01 13:07 | RADRPT ---
PROCEDURE: Lexiscan myocardial perfusion study CLINICAL INDICATION: 61 -year-old patient complaining of chest pain. TECHNIQUE: Lexiscan 0.4 mg intravenously separate acquisition gated myocardial perfusion SPECT usi ng Tc 99m Myoview 32.0 mCi intravenously at stress and Tc-99m Myoview, 11.0 mCi intravenously at res t was performed using the rest/stress sequence. Poststress Myoview SPECT images were obtained in th e supine position. COMPARISON: No prior studies. FINDINGS: Perfusion images reveal a large size moderate to severe in degree nonreversible perfusion defect in the apical, anterior, distal inferior and anteroseptal white. Lexiscan post stress gated SPECT images demonstrate no wall motion abnormalities. IMPRESSION: 1. The type and distribution of the scintigraphic abnormalities are most consistent with a large non reversible perfusion defect involving the apex, anterior, distal inferior and anteroseptal white. 2. No wall motion abnormalities. 3. The left ventricle ejection fraction at stress is 50%. A call report was made to Dr. Randolph at 01:05 p.m. on April 01, 2017. RPTAT: HH .Marlene Smith MD, Date Time Electronically viewed and signed by .Marlene Smith MD, on 04/01/2017 13:07 .Mario/
[2017-04-01] MEDS: HYDROCODONE/APAP (5/325) TAB PO PRN (13:52)
--- NOTE | 2017-04-01 13:59 | DS ---
Date/Time of Note Date/Time of Note DATE: 04/01/17 TIME: 13:59 Discharge Summary Admission/Discharge Info Admit Date/Time Mar 30, 2017 at 22:37 Discharge Date/Time Apr 01, 2017 Discharge Diagnosis 1. Chest pressure, back pain, atypical 2. Multivessel, coronary artery disease 3. Hyperlipidemia Patient Condition: Stable Consults Cardiology, Dr. 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 Patient was actually in [place] on vacation, he just flew back yesterday. He reports that 4- 5 days ago after breakfast he had an episode of severe chest pressure with shortness of breath that lasted less than a minute, according to the the patient was also pale and ashen when this happened, he eventually was able to catch his breath back and was asymptomatic after that. He reports that he has been experiencing this upper back pain which is similar to the symptoms he had on his previous heart attack, he reports that this upper back pain seems to be worse when he is sitting or exerting himself, it sounds like he could be still muscular. He denies any fevers, chills, cough, diaphoresis, nausea or vomiting. He was sent to the emergency department by his primary care physician, in the ER his EKG did show low voltage QRSs and sinus rhythm with heart rate in the upper 50s. He is noted to have a systolic blood pressures upper 90s-100. He does not check his blood pressure at home but does take his carvedilol and lisinopril, it is unclear if he is having episodes of orthostatic hypotension Cardiac enzymes are negative overnight, he stable on telemetry just noted to have sinus bradycardia down to 40s overnight. He denies chest pressure this morning he still having the upper back pain. He denies dizziness, he denies lower extremity edema. Because of his recent travel, CT angiogram of the chest was done and came back negative for pulmonary embolus. He is currently n.p.o. awaiting evaluation from Dr. Randolph, in the meantime I will order 2D echocardiogram. Hospital Course Patient was admitted with back pain, previous episode of shortness of breath and chest pain. CT angiogram negative for pulmonary embolus. He was seen by cardiology Dr. Randolph. Cardiac enzymes negative, EKG unchanged, stress test was done with the findings of on the irreversible ischemic areas which were secondary to his previous acute MD. No reversible areas. Discharge home today with outpatient follow-up with cardiology and PCP Home Meds Active Scripts Ranolazine* (Ranexa*) 500 Mg Tab.sr.12h, 500 MG PO Q12 for 30 Days, TAB 3 Refills Prov:OJAQUINCAIT 04/01/17 Aspirin* (Aspirin* EC) 81 Mg Tablet.dr, 81 MG PO DAILY for 30 Days, 11 Refills Prov:JOAQUINCAIT 12/02/16 Lisinopril* (Lisinopril*) 5 Mg Tablet, 2.5 MG PO DAILY for 30 Days, TAB 3 Refills 1/2 tab po daily Prov:JOAQUINCAIT 12/02/16 Carvedilol* (Carvedilol*) 3.125 Mg Tablet, 3.125 MG PO BID for 30 Days, TAB 3 Refills Prov:JOAQUINCAIT 12/02/16 Atorvastatin* (Atorvastatin*) 80 Mg Tablet, 80 MG PO HS for 30 Days, TAB 3 Refills Prov:JOAQUINCAIT 12/02/16 Ticagrelor* (Brilinta*) 90 Mg Tablet, 90 MG PO BID for 30 Days, TAB 11 Refills Prov:JOAQUINCezarREDDY 12/02/16 Reported Medications Acetaminophen* (Tylenol*) 500 Mg Tab, 500 MG PO Q4H Y for MILD PAIN LEVEL 1-3, TAB 03/31/17 Multivitamins* (Theragran*) 1 Tab Tab, 1 TAB PO DAILY, TAB 03/31/17 Acetaminophen* (Acetaminophen*) 500 MG Extra Strength Tablet, 500 MG PO Q4H Y for PAIN AND OR ELEVATED TEMP, TAB 11/28/16 Follow-up Plan Follow-up with primary care physician within 1 week Follow-up with outpatient cardiology within 2-4 weeks Primary Care Provider Derrek To MD Time spent on discharge: > 30 minutes Pending Labs Laboratory Tests Test 04/01/17 07:23 Troponin I < 0.012ng/ml (0.00-0.12) CAIT NUÑEZ Apr 01, 2017 13:59 Test 04/01/17 07:23 Troponin I < 0.012ng/ml (0.00-0.12) CAIT NUÑEZ Apr 01, 2017 13:59
[2017-04-01] MEDS ORDERED: RANOLAZINE (SR) 500 MG TAB PO SCH (21:00)
--- NOTE | 2017-04-01 21:38 | RADRPT ---
Echocardiogram Report Patient Name: MATHEW HOLM Gender: Male Date: 1955 Study Date: 31-Mar-2017 Executive Housekeeper: Dhiraj Whalen [facility] Location: [id number] Ref. Physician: RHODA NUÑEZ Quality: Good Procedures: Transthoracic echocardiogram with complete 2D, M-Mode, and doppler examination. Indications: chest pain, s/p stemi 4 months ago. 2D/M Mode Doppler Measurement Value Normal Ranges Measurement Value Normal Ranges LVIDd 2D 4.4 3.5 - 5.6 cm AV Peak Chavez 1.7 m/sec LVIDs 2D 2.5 2.1 - 4.1 cm AV Peak PG 10.9 mmHg LVPWd 2D 1.2 0.6 - 1.1 cm LVOT Peak Chavez 1.3 m/sec IVSd 2D 1.2 0.6 - 1.1 cm LVOT Peak PG 6.6 mmHg AoR Diam 2D 2.9 2.0 - 3.7 cm MV E Peak Chavez 0.8 m/sec EDV 2D 85.8 cm3 MV A Peak Chaevz 1.0 m/sec ESV 2D 16.4 cm3 MV E/A 0.8 LA Dimen 2D 3.8 2.3 - 4.0 cm MV Decel Time 183 msec MV Decel [place] 4 MV E/A 0.8 TR Peak Chavez 2.3 m/sec TR Peak PG 20.6 mmHg RVSP 24.0 mmHg Findings Left Ventricle: Normal left ventricular cavity size. Mild concentric left ventricular hypertrophy. Mild left ventricular systolic dysfunction. Ejection fraction is visually estimated at 45 %. Tissue Doppler/Mitral Doppler indices are consistent with impaired relaxation (Stage I diastolic dysfunction). These segments of the LV are hypokinetic apical septum and apex. Right Ventricle: Normal right ventricular size. Normal right ventricular systolic function. Left Atrium: The left atrium is normal in size. Right Atrium: The right atrium is normal in size. Mitral Valve: Mitral valve leaflets appear mildly thickened. Mild mitral annular calcification. There is trace to mild mitral valve regurgitation. Aortic Valve: No significant aortic stenosis or insufficiency. Aortic cusps appear mildly calcified. Tricuspid Valve: Normal appearance of the tricuspid valve. Estimated peak PA systolic pressure 24 mmHg. There is trace tricuspid regurgitation. Pulmonic Valve: Normal pulmonic valve appearance. Pericardium: Normal pericardium with no significant pericardial effusion. Aorta: Normal aortic root. IVC: Normal size and normal respiratory collapse consistent with normal right atrial pressure. Conclusions 1.Normal left ventricular cavity size. Mild concentric left ventricular hypertrophy. Mild left ventricular systolic dysfunction. Ejection fraction is visually estimated at 45 %. Tissue Doppler/Mitral Doppler indices are consistent with impaired relaxation (Stage I diastolic dysfunction). These segments of the LV are hypokinetic apical septum. and apex. 2.Mitral valve leaflets appear mildly thickened. Mild mitral annular calcification. There is trace to mild mitral valve regurgitation. 3.Normal appearance of the tricuspid valve. Estimated peak PA systolic pressure 24 mmHg. There is trace tricuspid regurgitation. Electronically Signed By: Ricky Randolph 01-Apr-2017 21:37:32 -0800 Patient Name: MATHEW HOLM Study Date: 31-Mar-2017 [id number]
== END 2017-04-01 17:35 | disposition home or self-care (01) ==
LOC: E/R 15:51 → MS4 22:37
PROVIDERS: ADMIT Internal Medicine; ATTEND Internal Medicine
DX: R07.89 Other chest pain (principal); M54.9 Dorsalgia, unspecified; I25.10 Atherosclerotic heart disease of native coronary artery without angina pectoris; Z95.5 Presence of coronary angioplasty implant and graft; E78.5 Hyperlipidemia, unspecified; I25.2 Old myocardial infarction; Z79.82 Long term (current) use of aspirin; D64.9 Anemia, unspecified; I95.9 Hypotension, unspecified; R00.1 Bradycardia, unspecified; Z82.49 Family history of ischemic heart disease and other diseases of the circulatory system
CPT/HCPCS: 36415; 71010; 71275; 78452; 80048; 80053; 80061; 82550; 82553; 83036; 83735; 84443; 84484; 85025; 93005; 93017; 93306; 99285; A9500; A9505; G0378; J1650; J2785; Q9967